=== PATIENT | female | born 1960 | race Hispanic/Latino ===

== ENCOUNTER 2017-12-15 22:47 | Emergency (ER) | payer OTHER, MEDICARE ==
[~2017-12-15 22:47] MED LIST: ALBU90AE IH; AUD IH; CARAL PO; DICY20TA11 PO; FLUT16H NASAL; GABA-531 PO; IPRA3AMP4 IH; LINA290C PO; LORA1TAB3 PO; LOSA25TA21 PO; MECL-111 PO; METF500T6 PO; OFLO5DRO21 AD; OLOP15OS OU; OMEP40CA37 PO; ONDA4TAB4 PO; ROSU5TAB PO
== END 2017-12-16 01:56 | disposition left against medical advice (07) ==
LOC: EDH 22:47
DX: L50.9 Urticaria, unspecified (principal); L29.9 Pruritus, unspecified; J44.9 Chronic obstructive pulmonary disease, unspecified; E11.9 Type 2 diabetes mellitus without complications; E78.5 Hyperlipidemia, unspecified; I10 Essential (primary) hypertension; Z88.0 Allergy status to penicillin; Z88.6 Allergy status to analgesic agent; Z88.8 Allergy status to other drugs, medicaments and biological substances
CPT/HCPCS: 99281

== ENCOUNTER 2019-07-07 04:57 | Emergency (ER) | payer OTHER, MEDICARE ==
[~2019-07-07 04:57] MED LIST changes: +IPRA3AMP24 IH; -IPRA3AMP4 IH; -LOSA25TA21 PO; +LOSA25TA41 PO; +METF-444 PO; -METF500T6 PO; +OMEP40CA13 PO; -OMEP40CA37 PO
[2019-07-07] MEDS ORDERED: ONDANSETRON HCL 4 MG/2 ML VIAL ONE (05:42)
[2019-07-07] MEDS ORDERED: METOCLOPRAMIDE 10 MG/2 ML VIAL ONE (05:42)
[2019-07-07 05:43] LABS: BASOPHILS % (AUTO) 0.2 % (0.0-5.0); EOSINOPHILS % (AUTO) 0.7 % (0.0-8.0); HEMATOCRIT 45.7 % (36-48); LYMPHOCYTES % (AUTO) 5.2 % (21.0-51.0); MEAN CORPUSCULAR HEMOGLOBIN 28.7 pg (27.0-33.0); MEAN CORPUSCULAR HGB CONC 32.8 g/dL (32.0-36.0); MEAN CORPUSCULAR VOLUME 87.5 fL (79-99); MONOCYTES % (AUTO) 3.5 % (3.0-13.0); NEUTROPHILS % (AUTO) 90.4 % (40.0-77.0); PLATELET COUNT (AUTO) 263 K/uL (130-400); RED BLOOD CELL COUNT(AUTO) 5.22 MIL/uL (4.00-5.50); RED CELL DISTRIBUTION WIDTH 14.4 % (11.0-15.5); WHITE BLOOD COUNT (AUTO) 13.9 K/uL (4.8-10.8)
[2019-07-07] MEDS ORDERED: SODIUM CHLORIDE 0.9% 1000ML 1,000 ML IV ONE ×2 (05:43→07:02)
[2019-07-07 05:52] LABS: POTASSIUM 3.7 mmol/L (3.5-5.1)
[2019-07-07 05:55] LABS: INR 0.94 (0.85-1.15); PARTIAL THROMBOPLASTIN TIME 25.9 SEC (26.3-35.5); PROTHROMBIN TIME 9.9 SEC (9.6-11.6)
[2019-07-07 05:59] LABS: ALBUMIN 3.3 g/dL (3.5-5.0); BILIRUBIN,TOTAL 0.5 mg/dL (0.2-1.0)
[2019-07-07] MEDS ORDERED: DiphenhydrAMINE HCL 50 MG/ML VIAL ONE (07:02)
[2019-07-07] MEDS ORDERED: FAMOTIDINE/PF 20 MG/2 ML VIAL IV ONE (07:02)
== END 2019-07-07 07:49 | disposition home or self-care (01) ==
LOC: EDH 04:57
DX: E86.9 Volume depletion, unspecified (principal); K21.9 Gastro-esophageal reflux disease without esophagitis; R51 Headache; F41.9 Anxiety disorder, unspecified; J44.9 Chronic obstructive pulmonary disease, unspecified; F32.9 Major depressive disorder, single episode, unspecified; E11.9 Type 2 diabetes mellitus without complications; E78.5 Hyperlipidemia, unspecified; I10 Essential (primary) hypertension; J45.909 Unspecified asthma, uncomplicated; Z88.0 Allergy status to penicillin; Z88.1 Allergy status to other antibiotic agents; Z88.8 Allergy status to other drugs, medicaments and biological substances
CPT/HCPCS: 36415; 80053; 82550; 83605; 83690; 85025; 85610; 85730; 93005; 96361; 96374; 96375; 99285; J1200; J2405; J2765; J3490; J7030 ×2

== ENCOUNTER 2020-01-26 23:14 | Inpatient (IN) | payer OTHER, MEDICARE ==
[~2020-01-26] VITALS: Ht 167.6 cm; Wt 115.2 kg
[~2020-01-26 23:14] MED LIST changes: -MECL-111 PO; +MECL-160 PO
[2020-01-27] VITALS (15 sets, daily range): BP systolic 86–157; BP diastolic 40–81
[2020-01-27 00:14] LABS: HEMATOCRIT 40.8 % (36-48); LYMPHOCYTES % (AUTO) 20.2 % (21.0-51.0); MEAN CORPUSCULAR HGB CONC 32.4 g/dL (32.0-36.0); MEAN CORPUSCULAR VOLUME 86.6 fL (79-99); MONOCYTES % (AUTO) 5.1 % (3.0-13.0); NEUTROPHILS % (AUTO) 74.5 % (40.0-77.0); PLATELET COUNT (AUTO) 151 K/uL (130-400); RED BLOOD CELL COUNT(AUTO) 4.71 MIL/uL (4.00-5.50); RED CELL DISTRIBUTION WIDTH 13.5 % (11.0-15.5); WHITE BLOOD COUNT (AUTO) 5.1 K/uL (4.8-10.8)
[2020-01-27 00:39] LABS: CREATININE 1.1 mg/dL (0.5-1.5); POTASSIUM 3.5 mmol/L (3.5-5.1)
[2020-01-27 00:42] LABS: APPEARANCE,URINE Clear (CLEAR); BILIRUBIN,URINE Negative (NEGATIVE); COLOR,URINE Yellow (YELLOW); GLUCOSE, URINE (UA) Negative (NEGATIVE); KETONES,URINE Negative (NEGATIVE); LEUKOCYTE ESTERASE ,URINE Negative (NEGATIVE); NITRATE,URINE Negative (NEGATIVE); OCCULT BLOOD,URINE Negative (NEGATIVE); PROTEIN,URINE Negative (NEGATIVE); UROBILINOGEN,URINE 0.2 mg/dL (0.2-1.0)
[2020-01-27 00:43] LABS: ALBUMIN 3.3 g/dL (3.5-5.0); BILIRUBIN,TOTAL 0.2 mg/dL (0.2-1.0); TOTAL PROTEIN, SERUM 7.9 g/dL (6.0-8.3)
[2020-01-27] MEDS ORDERED: LEVOFLOXACIN 750 MG/D5W 150 ML 150 ML ONE (00:44)
[2020-01-27 00:48] LABS: B-TYPE NATRIURETIC PEPTIDE 10 pg/mL (0-100)
[2020-01-27 00:53] LABS: AMPHET/METH SCREEN,URINE NEGATIVE (NEGATIVE); BARBITURATE SCREEN, URINE NEGATIVE (NEGATIVE); BENZODIAZEPINES SCREEN,URINE NEGATIVE (NEGATIVE); CANNABINOID SCREEN,URINE NEGATIVE (NEGATIVE); COCAINE SCREEN,URINE NEGATIVE (NEGATIVE); OPIATE SCREEN,URINE NEGATIVE (NEGATIVE); PHENCYCLIDINE SCREEN,URINE NEGATIVE (NEGATIVE)
[2020-01-27 01:00] LABS: RAPID GROUP A STREP NEGATIVE (NEGATIVE)
[2020-01-27] MEDS ORDERED: ONDANSETRON HCL 4 MG/2 ML VIAL ONE (01:17)
[2020-01-27] MEDS ORDERED: ACETAMINOPHEN EXTRA STRENGTH 500 MG TABLET ONE (01:18)
[2020-01-27] MEDS ORDERED: IPRATROPIUM/ALBUTEROL SULFATE 3 ML SOLUTION IH ONE (03:07)
[2020-01-27] MEDS ORDERED: GLUCAGON 1MG KIT 1 MG ML IM PRN (04:00)
[2020-01-27] MEDS ORDERED: DEXTROSE 50%-WATER 50 ML DISP.SYRIN IV PRN (04:00)
--- NOTE | 2020-01-27 04:00 | NUR ---
Patient arrived to Unit at 0400 into room 219 on room air, but short of breath at times. Patient alert and oriented.
[2020-01-27] MEDS: SODIUM CHLORIDE 0.9% 1000ML 1,000 ML IV SCH ×2 (04:54→17:43)
[2020-01-27] MEDS: AZITHROMYCIN 500MG+NS 250ML 250 ML IV SCH (04:56)
[2020-01-27] MEDS: IPRATROPIUM/ALBUTEROL SULFATE 3 ML SOLUTION IH SCH ×2 (06:00→09:48)
[2020-01-27 06:04] LABS: BASOPHILS % (AUTO) 0.2 % (0.0-5.0); LYMPHOCYTES % (AUTO) 22.6 % (21.0-51.0); MEAN CORPUSCULAR HEMOGLOBIN 28.5 pg (27.0-33.0); MEAN CORPUSCULAR HGB CONC 32.7 g/dL (32.0-36.0); MEAN CORPUSCULAR VOLUME 87.3 fL (79-99); NEUTROPHILS % (AUTO) 71.8 % (40.0-77.0); PLATELET COUNT (AUTO) 144 K/uL (130-400); RED BLOOD CELL COUNT(AUTO) 4.24 MIL/uL (4.00-5.50); RED CELL DISTRIBUTION WIDTH 13.6 % (11.0-15.5); WHITE BLOOD COUNT (AUTO) 4.6 K/uL (4.8-10.8)
[2020-01-27 06:27] LABS: ALBUMIN 2.8 g/dL (3.5-5.0); BILIRUBIN,TOTAL 0.2 mg/dL (0.2-1.0); POTASSIUM 3.7 mmol/L (3.5-5.1); TOTAL PROTEIN, SERUM 6.9 g/dL (6.0-8.3)
[2020-01-27] MEDS: INSULIN R PO SS1 SQ SCH ×4 (07:30→20:27)
[2020-01-27] MEDS ORDERED: OLME40TA18 PO (08:09)
[2020-01-27] MEDS ORDERED: LORA-192 PO (08:09)
[2020-01-27] MEDS ORDERED: TRAM50TA4 PO (08:09)
[2020-01-27] MEDS ORDERED: FURO40TA5 PO (08:09)
[2020-01-27] MEDS ORDERED: ASPI-556 PO (08:09)
[2020-01-27] MEDS ORDERED: AMLO-257 PO (08:09)
[2020-01-27] MEDS ORDERED: [UNRECOGNIZED DRUG - CODE] IV (08:09)
[2020-01-27] MEDS: FAMOTIDINE 20MG TAB 20 MG TAB PO SCH ×2 (09:03→20:19)
[2020-01-27] MEDS: ENOXAPARIN SODIUM 40 MG/0.4 ML SYRINGE SQ SCH (09:04)
--- NOTE | 2020-01-27 10:45 | NUR ---
DC PLAN PATIENT IN COVID ICU SECTION. CALLED SPOUSE FOR IA. PATIENT LIVES WITH SPOUSE. INDEPENDENT ABLE TO PERFORM ADL'S. PATIENT HAS WALKER WITH WHEELS, NEBULIZER AND CANE. NO OTHER SERVICES. FEELS SAFE FOR PATIENT TO RETURN HOME. Addendum: 01/27/20 at 1057 by MAYO PALOMARES RN CM Amended: Links added.
[2020-01-27] MEDS ORDERED: ALBUTEROL SULFATE 0.083% 2.5 MG/3 ML INH IH SCH (13:00)
[2020-01-27] MEDS ORDERED: GUAIFENESIN-CODEINE 5 ML SYRUP PO PRN (13:00)
[2020-01-27] MEDS ORDERED: GUAIFENESIN-CODEINE 5 ML SYRUP ONE ×2 (13:03→17:38)
[2020-01-27] MEDS: ONDANSETRON HCL 4 MG/2 ML VIAL IVP PRN (13:06)
[2020-01-27] MEDS: ALBUTEROL INHALER 90MCG/INH IH SCH (17:42)
[2020-01-27] MEDS: GUAIFENESIN-CODEINE 5 ML SYRUP PO SCH (17:43)
[2020-01-27] MEDS ORDERED: ALBUTEROL INHALER 90MCG/INH IH PRN (18:00)
[2020-01-27] MEDS ORDERED: NON-FORMULARY MEDICATION 1 EACH (Omeprazole 40 MG) PO SCH (20:15)
[2020-01-27] MEDS: CEFEPIME HCL 2 GM VIAL IVP SCH (20:19)
[2020-01-27] MEDS: ACETAMINOPHEN 325 MG TAB PO PRN (20:23)
[2020-01-27] MEDS: PHARMACY COMMUNICATION MISC SCH (20:45)
[2020-01-28] MEDS ORDERED: LEVOFLOXACIN 500 MG/D5W 100 ML 100 ML IV SCH
[2020-01-28] MEDS: ALBUTEROL INHALER 90MCG/INH IH SCH ×3 (00:11→23:23)
[2020-01-28] MEDS: GUAIFENESIN-CODEINE 5 ML SYRUP PO SCH ×5 (00:12→23:22)
[2020-01-28] MEDS: CEFEPIME HCL 2 GM VIAL IVP SCH ×3 (04:06→20:02)
[2020-01-28] MEDS: AZITHROMYCIN 500MG+NS 250ML 250 ML IV SCH (04:06)
[2020-01-28] MEDS: PHARMACY COMMUNICATION MISC SCH ×2 (04:45→19:52)
[2020-01-28 04:48] VITALS: BP 130/69
[2020-01-28] MEDS: SODIUM CHLORIDE 0.9% 1000ML 1,000 ML IV SCH ×2 (05:17→19:52)
[2020-01-28] MEDS: INSULIN R PO SS1 SQ SCH ×4 (05:17→20:02)
[2020-01-28 05:43] LABS: BASOPHILS % (AUTO) 0.2 % (0.0-5.0); LYMPHOCYTES % (AUTO) 21.2 % (21.0-51.0); MEAN CORPUSCULAR HEMOGLOBIN 28.2 pg (27.0-33.0); MEAN CORPUSCULAR HGB CONC 32.2 g/dL (32.0-36.0); MEAN CORPUSCULAR VOLUME 87.6 fL (79-99); MONOCYTES % (AUTO) 3.5 % (3.0-13.0); NEUTROPHILS % (AUTO) 74.7 % (40.0-77.0); PLATELET COUNT (AUTO) 144 K/uL (130-400); RED BLOOD CELL COUNT(AUTO) 4.11 MIL/uL (4.00-5.50); RED CELL DISTRIBUTION WIDTH 13.8 % (11.0-15.5); WHITE BLOOD COUNT (AUTO) 4.9 K/uL (4.8-10.8)
[2020-01-28 06:05] LABS: ALANINE AMINOTRANSFERASE 30 U/L (12-78); ALBUMIN 2.8 g/dL (3.5-5.0); ASPARTATE AMINOTRANSFERASE 44 U/L (10-37); BILIRUBIN,TOTAL 0.3 mg/dL (0.2-1.0); CARBON DIOXIDE 23 mmol/L (21-32); CHLORIDE 104 mmol/L (101-111); CREATININE 0.9 mg/dL (0.5-1.5); GLOMERULAR FILTR. RATE CALC 68 mL/min (>60); GLUCOSE,RANDOM 151 mg/dL (70-105); LACTATE DEHYDROGENASE 280 U/L (81-234); POTASSIUM 3.6 mmol/L (3.5-5.1); SODIUM SERUM 137 mmol/L (136-145); TOTAL PROTEIN, SERUM 6.8 g/dL (6.0-8.3); UREA NITROGEN, BLOOD 7 mg/dL (7-18)
[2020-01-28 07:00] VITALS: BP 117/63
[2020-01-28] MEDS: AMLODIPINE BESYLATE 5 MG TAB PO SCH (08:48)
[2020-01-28] MEDS: FUROSEMIDE 40 MG TABLET PO SCH (08:48)
[2020-01-28] MEDS: FAMOTIDINE 20MG TAB 20 MG TAB PO SCH ×2 (08:48→20:02)
[2020-01-28] MEDS: ENOXAPARIN SODIUM 40 MG/0.4 ML SYRINGE SQ SCH (08:49)
[2020-01-28] MEDS: Olmesartan Medoxomil 40 MG PO SCH (08:51)
[2020-01-28] MEDS ORDERED: LOSARTAN 50 MG TABLET PO SCH (09:00)
--- NOTE | 2020-01-28 09:30 | NUR ---
POSITIVE COVID POSITIVE COVID RESULTS ON 01/28/2020.
[2020-01-28 11:40] VITALS: BP 134/53
[2020-01-28] MEDS: ONDANSETRON HCL 4 MG/2 ML VIAL IVP PRN (11:54)
[2020-01-28] MEDS: ACETAMINOPHEN 325 MG TAB PO PRN ×2 (11:55→21:02)
--- NOTE | 2020-01-28 13:15 | NUR ---
SHAREE HARRIS AND DR. MARY TOLLIVER CUSTOMER ACQUISITION SPECIALIST AND DR. HERNANDEZ AT BEDSIDE TO SEE AND EVALUATE PATIENT. PATIENT MADE AWARE THAT SHE TESTED POSITIVE FOR COVID-19. ALL QUESTIONS AND CONCERNS WERE ANSWERED AND ADDRESSED BY SHAREE HARRIS AT THIS TIME.
[2020-01-28] MEDS: LORAZEPAM 1 MG TABLET PO PRN (14:14)
[2020-01-28 19:57] VITALS: BP 124/54
[2020-01-28 22:51] VITALS: BP 100/53
[2020-01-29 02:42] VITALS: BP 129/64
[2020-01-29] MEDS: CEFEPIME HCL 2 GM VIAL IVP SCH ×3 (03:24→20:31)
[2020-01-29] MEDS: AZITHROMYCIN 500MG+NS 250ML 250 ML IV SCH (03:25)
[2020-01-29] MEDS: ONDANSETRON HCL 4 MG/2 ML VIAL IVP PRN ×2 (03:53→10:48)
[2020-01-29] MEDS: ACETAMINOPHEN 325 MG TAB PO PRN ×2 (03:55→18:56)
[2020-01-29] MEDS: PHARMACY COMMUNICATION MISC SCH ×3 (04:45→20:45)
[2020-01-29] MEDS: GUAIFENESIN-CODEINE 5 ML SYRUP PO SCH ×4 (05:45→22:19)
[2020-01-29 05:49] LABS: HEMATOCRIT 34.9 % (36-48); LYMPHOCYTES % (AUTO) 15.5 % (21.0-51.0); MEAN CORPUSCULAR HEMOGLOBIN 27.5 pg (27.0-33.0); MEAN CORPUSCULAR HGB CONC 31.8 g/dL (32.0-36.0); MEAN CORPUSCULAR VOLUME 86.4 fL (79-99); MONOCYTES % (AUTO) 4.1 % (3.0-13.0); PLATELET COUNT (AUTO) 142 K/uL (130-400); RED BLOOD CELL COUNT(AUTO) 4.04 MIL/uL (4.00-5.50); RED CELL DISTRIBUTION WIDTH 13.7 % (11.0-15.5); WHITE BLOOD COUNT (AUTO) 5.3 K/uL (4.8-10.8)
[2020-01-29] MEDS: INSULIN R PO SS1 SQ SCH ×4 (05:51→20:33)
[2020-01-29 06:04] LABS: CREATININE 0.9 mg/dL (0.5-1.5); POTASSIUM 3.6 mmol/L (3.5-5.1)
[2020-01-29] MEDS: ALBUTEROL INHALER 90MCG/INH IH SCH (06:13)
[2020-01-29] MEDS: FAMOTIDINE 20MG TAB 20 MG TAB PO SCH ×2 (08:04→20:31)
[2020-01-29] MEDS: FUROSEMIDE 40 MG TABLET PO SCH (08:04)
[2020-01-29] MEDS: ENOXAPARIN SODIUM 40 MG/0.4 ML SYRINGE SQ SCH (08:04)
[2020-01-29] MEDS: AMLODIPINE BESYLATE 5 MG TAB PO SCH (08:38)
[2020-01-29] MEDS: Olmesartan Medoxomil 40 MG PO SCH (08:39)
[2020-01-29] MEDS: SODIUM CHLORIDE 0.9% 1000ML 1,000 ML IV SCH ×2 (08:40→20:31)
[2020-01-29 09:09] VITALS: BP 124/63
[2020-01-29] MEDS ORDERED: BENZONATATE 100 MG CAPSULE PO PRN (09:30)
[2020-01-29 12:05] VITALS: BP 141/68
[2020-01-29 16:23] VITALS: BP 140/64
[2020-01-29 20:08] VITALS: BP 147/83
[2020-01-30] VITALS (7 sets, daily range): BP systolic 101–147; BP diastolic 51–72
[2020-01-30] MEDS: ONDANSETRON HCL 4 MG/2 ML VIAL IVP PRN (00:47)
[2020-01-30] MEDS: CEFEPIME HCL 2 GM VIAL IVP SCH (04:40)
[2020-01-30] MEDS: GUAIFENESIN-CODEINE 5 ML SYRUP PO SCH ×3 (04:41→17:23)
[2020-01-30] MEDS: AZITHROMYCIN 500MG+NS 250ML 250 ML IV SCH (04:41)
[2020-01-30] MEDS: INSULIN R PO SS1 SQ SCH ×4 (07:30→21:00)
[2020-01-30] MEDS: ENOXAPARIN SODIUM 40 MG/0.4 ML SYRINGE SQ SCH (09:23)
[2020-01-30] MEDS: FAMOTIDINE 20MG TAB 20 MG TAB PO SCH ×2 (09:24→21:52)
[2020-01-30] MEDS: LOSARTAN 50 MG TABLET PO SCH (09:24)
[2020-01-30] MEDS: AMLODIPINE BESYLATE 5 MG TAB PO SCH (09:24)
[2020-01-30] MEDS: FUROSEMIDE 40 MG TABLET PO SCH (09:24)
[2020-01-30] MEDS: ACETAMINOPHEN 325 MG TAB PO PRN (09:46)
[2020-01-30] MEDS: SODIUM CHLORIDE 0.9% 1000ML 1,000 ML IV SCH ×2 (12:00→21:52)
[2020-01-30] MEDS ORDERED: VANCOMYCIN PROTOCOL PER PHARMACY IV SCH (12:00)
[2020-01-30] MEDS ORDERED: COMPOUND IV REFRIGERATED 1 EACH IVSOLN MISC PRN (12:15)
[2020-01-30] MEDS: MEROPENEM 1 GM VIAL IVP SCH ×2 (14:39→21:52)
[2020-01-30] MEDS: VANCOMYCIN 1.25 GM in SODIUM CHLORIDE 0.9% 250 ML IV SCH (14:41)
[2020-01-30] MEDS ORDERED: METHYLPREDNISOLONE SOD SUCC 40MG/ML 1ML IVP SCH (16:45)
[2020-01-30] MEDS: LORAZEPAM 1 MG TABLET PO PRN (17:25)
[2020-01-30] MEDS: ZOLPIDEM TARTRATE 5 MG TAB PO SCH (21:52)
[2020-01-30] MEDS: ALBUTEROL INHALER 90MCG/INH IH SCH (22:06)
[2020-01-31] VITALS (7 sets, daily range): BP systolic 121–140; BP diastolic 52–67
[2020-01-31] MEDS: GUAIFENESIN-CODEINE 5 ML SYRUP PO SCH ×5 (00:08→23:18)
[2020-01-31] MEDS: VANCOMYCIN 1.25 GM in SODIUM CHLORIDE 0.9% 250 ML IV SCH ×2 (00:09→11:22)
[2020-01-31] MEDS: AZITHROMYCIN 500MG+NS 250ML 250 ML IV SCH (05:28)
[2020-01-31] MEDS: MEROPENEM 1 GM VIAL IVP SCH ×3 (05:28→20:07)
[2020-01-31] MEDS: ALBUTEROL INHALER 90MCG/INH IH SCH ×3 (05:42→18:22)
[2020-01-31] MEDS: INSULIN R PO SS1 SQ SCH ×4 (05:43→20:11)
[2020-01-31] MEDS: LOSARTAN 50 MG TABLET PO SCH (08:15)
[2020-01-31] MEDS: ENOXAPARIN SODIUM 40 MG/0.4 ML SYRINGE SQ SCH (08:16)
[2020-01-31] MEDS: FUROSEMIDE 40 MG TABLET PO SCH (08:16)
[2020-01-31] MEDS: METHYLPREDNISOLONE SOD SUCC 40MG/ML 1ML IVP SCH (08:16)
[2020-01-31] MEDS: FAMOTIDINE 20MG TAB 20 MG TAB PO SCH ×2 (08:16→20:07)
[2020-01-31] MEDS: AMLODIPINE BESYLATE 5 MG TAB PO SCH (08:17)
[2020-01-31] MEDS: LOPERAMIDE HCL 2 MG CAP PO PRN ×3 (11:15→23:18)
[2020-01-31] MEDS: LORAZEPAM 1 MG TABLET PO PRN (11:30)
[2020-01-31] MEDS: SODIUM CHLORIDE 0.9% 1000ML 1,000 ML IV SCH (16:39)
[2020-01-31] MEDS: ZOLPIDEM TARTRATE 5 MG TAB PO SCH (20:07)
[2020-01-31] MEDS: PHARMACY COMMUNICATION MISC SCH (20:45)
[2020-02-01] MEDS: VANCOMYCIN 1.25 GM in SODIUM CHLORIDE 0.9% 250 ML IV SCH ×2 (01:50→12:37)
[2020-02-01] MEDS: ALBUTEROL INHALER 90MCG/INH IH SCH ×5 (01:53→23:50)
[2020-02-01] MEDS: ONDANSETRON HCL 4 MG/2 ML VIAL IVP PRN ×3 (02:33→17:39)
[2020-02-01] MEDS: LORAZEPAM 1 MG TABLET PO PRN ×2 (02:34→20:39)
[2020-02-01 03:00] VITALS: BP 117/69
[2020-02-01] MEDS: PHARMACY COMMUNICATION MISC SCH ×3 (04:45→20:45)
[2020-02-01] MEDS: MEROPENEM 1 GM VIAL IVP SCH ×3 (04:58→20:39)
[2020-02-01] MEDS: AZITHROMYCIN 500MG+NS 250ML 250 ML IV SCH (05:00)
[2020-02-01] MEDS: SODIUM CHLORIDE 0.9% 1000ML 1,000 ML IV SCH ×2 (05:00→17:20)
[2020-02-01] MEDS: GUAIFENESIN-CODEINE 5 ML SYRUP PO SCH ×3 (05:04→17:38)
[2020-02-01 05:59] LABS: BASOPHILS % (AUTO) 0.2 % (0.0-5.0); HEMATOCRIT 35.2 % (36-48); LYMPHOCYTES % (AUTO) 20.4 % (21.0-51.0); MEAN CORPUSCULAR HEMOGLOBIN 28.8 pg (27.0-33.0); MEAN CORPUSCULAR HGB CONC 32.7 g/dL (32.0-36.0); MEAN CORPUSCULAR VOLUME 88.2 fL (79-99); NEUTROPHILS % (AUTO) 70.7 % (40.0-77.0); PLATELET COUNT (AUTO) 265 K/uL (130-400); RED BLOOD CELL COUNT(AUTO) 3.99 MIL/uL (4.00-5.50); RED CELL DISTRIBUTION WIDTH 13.6 % (11.0-15.5); WHITE BLOOD COUNT (AUTO) 5.8 K/uL (4.8-10.8)
[2020-02-01] MEDS: INSULIN R PO SS1 SQ SCH ×4 (06:09→23:49)
[2020-02-01 06:13] LABS: CREATININE 0.9 mg/dL (0.5-1.5); POTASSIUM 3.4 mmol/L (3.5-5.1)
[2020-02-01 08:00] VITALS: BP 141/67
[2020-02-01] MEDS: LOSARTAN 50 MG TABLET PO SCH (08:41)
[2020-02-01] MEDS: METHYLPREDNISOLONE SOD SUCC 40MG/ML 1ML IVP SCH (08:41)
[2020-02-01] MEDS: FUROSEMIDE 40 MG TABLET PO SCH ×2 (08:42→12:37)
[2020-02-01] MEDS: FAMOTIDINE 20MG TAB 20 MG TAB PO SCH ×2 (08:42→20:39)
[2020-02-01] MEDS: ENOXAPARIN SODIUM 40 MG/0.4 ML SYRINGE SQ SCH (08:42)
[2020-02-01] MEDS: LOPERAMIDE HCL 2 MG CAP PO PRN ×2 (08:44→17:39)
[2020-02-01] MEDS: AMLODIPINE BESYLATE 5 MG TAB PO SCH (08:48)
[2020-02-01 12:00] VITALS: BP 127/51
[2020-02-01] MEDS: POTASSIUM CHLORIDE 20 MEQ ERTAB PO PRN ×2 (12:36→17:38)
[2020-02-01 16:00] VITALS: BP 124/65
[2020-02-01 19:00] VITALS: BP 126/59
[2020-02-01] MEDS: ZOLPIDEM TARTRATE 5 MG TAB PO SCH (20:39)
[2020-02-01 23:00] VITALS: BP 138/67
[2020-02-02] MEDS: PHARMACY COMMUNICATION MISC SCH ×3 (00:10→04:45)
[2020-02-02] MEDS: GUAIFENESIN-CODEINE 5 ML SYRUP PO SCH ×5 (00:31→21:44)
[2020-02-02 03:00] VITALS: BP 133/57
[2020-02-02] MEDS: MEROPENEM 1 GM VIAL IVP SCH ×3 (04:59→21:44)
[2020-02-02] MEDS: AZITHROMYCIN 500MG+NS 250ML 250 ML IV SCH (05:00)
[2020-02-02] MEDS: ALBUTEROL INHALER 90MCG/INH IH SCH (06:27)
[2020-02-02] MEDS: SODIUM CHLORIDE 0.9% 1000ML 1,000 ML IV SCH ×2 (06:40→21:48)
[2020-02-02 07:17] LABS: BASOPHILS % (AUTO) 0.2 % (0.0-5.0); HEMATOCRIT 34.1 % (36-48); LYMPHOCYTES % (AUTO) 23.9 % (21.0-51.0); MEAN CORPUSCULAR HEMOGLOBIN 27.6 pg (27.0-33.0); MEAN CORPUSCULAR VOLUME 86.3 fL (79-99); NEUTROPHILS % (AUTO) 64.7 % (40.0-77.0); PLATELET COUNT (AUTO) 279 K/uL (130-400); RED BLOOD CELL COUNT(AUTO) 3.95 MIL/uL (4.00-5.50); RED CELL DISTRIBUTION WIDTH 13.6 % (11.0-15.5); WHITE BLOOD COUNT (AUTO) 6.5 K/uL (4.8-10.8)
[2020-02-02 07:25] LABS: ALBUMIN 2.3 g/dL (3.5-5.0); BILIRUBIN,TOTAL 0.2 mg/dL (0.2-1.0); CREATININE 0.8 mg/dL (0.5-1.5); POTASSIUM 3.3 mmol/L (3.5-5.1); TOTAL PROTEIN, SERUM 6.4 g/dL (6.0-8.3)
[2020-02-02] MEDS: INSULIN R PO SS1 SQ SCH ×4 (07:30→21:43)
[2020-02-02 07:44] LABS: CRP QUANTITATIVE 27.8 mg/L (0.00-9.0)
[2020-02-02 08:00] VITALS: BP 117/62
[2020-02-02] MEDS: ENOXAPARIN SODIUM 40 MG/0.4 ML SYRINGE SQ SCH (09:29)
[2020-02-02] MEDS: FUROSEMIDE 40 MG TABLET PO SCH (09:30)
[2020-02-02] MEDS: POTASSIUM CHLORIDE 10% ELIXIR 20 MEQ/15 ML UDCUP PO PRN (09:30)
[2020-02-02] MEDS: FAMOTIDINE 20MG TAB 20 MG TAB PO SCH ×2 (09:30→21:44)
[2020-02-02] MEDS: METHYLPREDNISOLONE SOD SUCC 40MG/ML 1ML IVP SCH (09:30)
[2020-02-02] MEDS: AMLODIPINE BESYLATE 5 MG TAB PO SCH (09:30)
[2020-02-02] MEDS: LOPERAMIDE HCL 2 MG CAP PO PRN (09:30)
[2020-02-02] MEDS: LOSARTAN 50 MG TABLET PO SCH (09:30)
[2020-02-02 12:00] VITALS: BP 115/47
[2020-02-02] MEDS: POTASSIUM CHLORIDE 20 MEQ ERTAB PO PRN ×2 (12:08→15:58)
[2020-02-02] MEDS: VANCOMYCIN 1.25 GM in SODIUM CHLORIDE 0.9% 250 ML IV SCH ×3 (12:10)
[2020-02-02 15:00] VITALS: BP 137/52
[2020-02-02 19:35] VITALS: BP 126/57
[2020-02-02] MEDS: ZOLPIDEM TARTRATE 5 MG TAB PO SCH (21:44)
[2020-02-02 23:35] VITALS: BP 129/62
[2020-02-03] MEDS: VANCOMYCIN 1.25 GM in SODIUM CHLORIDE 0.9% 250 ML IV SCH ×2 (00:19→11:43)
[2020-02-03] MEDS: MEROPENEM 1 GM VIAL IVP SCH ×3 (03:15→21:10)
[2020-02-03 03:32] VITALS: BP 125/68
[2020-02-03] MEDS: PHARMACY COMMUNICATION MISC SCH (04:45)
[2020-02-03] MEDS: GUAIFENESIN-CODEINE 5 ML SYRUP PO SCH ×4 (05:45→23:50)
[2020-02-03] MEDS: INSULIN R PO SS1 SQ SCH ×4 (06:11→21:00)
[2020-02-03 07:00] VITALS: BP 127/71
[2020-02-03] MEDS: LOSARTAN 50 MG TABLET PO SCH (07:55)
[2020-02-03] MEDS: FAMOTIDINE 20MG TAB 20 MG TAB PO SCH ×2 (07:55→21:11)
[2020-02-03] MEDS: AMLODIPINE BESYLATE 5 MG TAB PO SCH (07:55)
[2020-02-03] MEDS: FUROSEMIDE 40 MG TABLET PO SCH (07:55)
[2020-02-03] MEDS: ENOXAPARIN SODIUM 40 MG/0.4 ML SYRINGE SQ SCH (07:56)
[2020-02-03] MEDS: SODIUM CHLORIDE 0.9% 1000ML 1,000 ML IV SCH ×2 (07:56→21:13)
[2020-02-03] MEDS ORDERED: PREDNISONE 20 MG TABLET PO SCH (09:00)
[2020-02-03 11:00] VITALS: BP 117/65
[2020-02-03] MEDS: LOPERAMIDE HCL 2 MG CAP PO PRN (11:43)
[2020-02-03 16:00] VITALS: BP 117/67
[2020-02-03 19:26] VITALS: BP 135/69
--- NOTE | 2020-02-03 20:45 | NUR ---
ASSESSMENT PT RESTING IN BED. IVF NS AT 75ML/H INFUSING WITHOUT DIFFICULTY. PT AAOX4. PT COVID-19 (+). ASSESSMENT COMPLETE, SEE FLOW SHEET. CALLBELL WITHIN REACH.
[2020-02-03] MEDS: ZOLPIDEM TARTRATE 5 MG TAB PO SCH (21:11)
[2020-02-03 23:42] VITALS: BP 141/68
[2020-02-03] MEDS: LORAZEPAM 1 MG TABLET PO PRN (23:53)
[2020-02-03] MEDS: ACETAMINOPHEN 325 MG TAB PO PRN (23:55)
[2020-02-04] MEDS: MEROPENEM 1 GM VIAL IVP SCH ×2 (03:41→11:52)
[2020-02-04 03:48] VITALS: BP 142/72
[2020-02-04] MEDS: INSULIN R PO SS1 SQ SCH ×4 (05:24→20:17)
[2020-02-04] MEDS: GUAIFENESIN-CODEINE 5 ML SYRUP PO SCH ×3 (05:24→17:19)
[2020-02-04 05:38] LABS: BASOPHILS % (AUTO) 0.1 % (0.0-5.0); EOSINOPHILS % (AUTO) 0.3 % (0.0-8.0); HEMATOCRIT 35.2 % (36-48); LYMPHOCYTES % (AUTO) 29.2 % (21.0-51.0); MEAN CORPUSCULAR HEMOGLOBIN 28.1 pg (27.0-33.0); MEAN CORPUSCULAR HGB CONC 32.4 g/dL (32.0-36.0); MEAN CORPUSCULAR VOLUME 86.7 fL (79-99); MONOCYTES % (AUTO) 9.7 % (3.0-13.0); NEUTROPHILS % (AUTO) 58.8 % (40.0-77.0); PLATELET COUNT (AUTO) 342 K/uL (130-400); RED BLOOD CELL COUNT(AUTO) 4.06 MIL/uL (4.00-5.50); RED CELL DISTRIBUTION WIDTH 13.2 % (11.0-15.5); WHITE BLOOD COUNT (AUTO) 6.8 K/uL (4.8-10.8)
[2020-02-04 05:47] LABS: CREATININE 0.7 mg/dL (0.5-1.5); POTASSIUM 3.2 mmol/L (3.5-5.1)
[2020-02-04] MEDS: ALBUTEROL INHALER 90MCG/INH IH SCH ×2 (05:47)
[2020-02-04] MEDS: POTASSIUM CHLORIDE 10% ELIXIR 20 MEQ/15 ML UDCUP PO PRN ×2 (05:55→05:56)
[2020-02-04] MEDS: POTASSIUM CHLORIDE 20 MEQ ERTAB PO PRN ×2 (06:03→07:25)
[2020-02-04 07:00] VITALS: BP 135/68
[2020-02-04] MEDS: ENOXAPARIN SODIUM 40 MG/0.4 ML SYRINGE SQ SCH (07:22)
[2020-02-04] MEDS: AMLODIPINE BESYLATE 5 MG TAB PO SCH (07:23)
[2020-02-04] MEDS: LOSARTAN 50 MG TABLET PO SCH (07:23)
[2020-02-04] MEDS: FUROSEMIDE 40 MG TABLET PO SCH (07:23)
[2020-02-04] MEDS: FAMOTIDINE 20MG TAB 20 MG TAB PO SCH ×2 (07:23→20:17)
--- NOTE | 2020-02-04 08:00 | NUR ---
ASSESSMENT PT RESTING IN BED. AAOX3 DENIES CP DENIES SOB DENIES NV NO COMPLAINTS. O2 VIA NC 2LPM. CALL LIGHT WITHIN REACH. HR VIA TELE 70 SR.
[2020-02-04 11:00] VITALS: BP 106/52
--- NOTE | 2020-02-04 12:00 | NUR ---
PLACED ON CDIFF PRECAUTIONS STILL REMAINS ON ENHANCED AIRBORNE PRECAUTIONS
[2020-02-04 16:00] VITALS: BP 118/68
--- NOTE | 2020-02-04 17:20 | NUR ---
PATIENT HAS NO COMPLAINTS OF COUGH AT THIS TIME COUGH SYRUP NOT GIVEN
[2020-02-04] MEDS ORDERED: GUAIFENESIN-CODEINE 5 ML SYRUP PO PRN (17:45)
--- NOTE | 2020-02-04 18:26 | NUR ---
DC PLAN PATIENT QUALIFIED FOR HOME . SPOKE TO PATIENT FOR DANIEL SAID THAT DAUGHTER HAD SPOKEN TO [facility] AND SAID SHE COULD GET O2 FROM THEM. EXPLAINED THAT THS MIGHT NOT BE ACCEPTED AT [facility]. ASKED IF I COULD SEND PACKET TO [employer] COMPANY THAT WOULD ACCEPT PATIENT INSURANCE. GAVE DANIEL FOR 02 TO ANY IN NETWORK. INFO SENT TO [facility] AND TO [facility] MONITORING. Addendum: 02/04/20 at 1832 by MAYO PALOMARES RN CM Amended: Links added.
[2020-02-04] MEDS: ZOLPIDEM TARTRATE 5 MG TAB PO SCH (20:17)
[2020-02-04] MEDS: ACETAMINOPHEN 325 MG TAB PO PRN (20:34)
[2020-02-04] MEDS: LORAZEPAM 1 MG TABLET PO PRN (20:34)
[2020-02-04 20:49] VITALS: BP 104/63
[2020-02-05 00:03] VITALS: BP 114/56
[2020-02-05 04:12] VITALS: BP 128/52
[2020-02-05] MEDS: ALBUTEROL INHALER 90MCG/INH IH SCH ×2 (05:28)
[2020-02-05] MEDS: INSULIN R PO SS1 SQ SCH ×2 (06:23→11:30)
[2020-02-05 08:55] VITALS: BP 129/54
[2020-02-05] MEDS: LOSARTAN 50 MG TABLET PO SCH (09:04)
[2020-02-05] MEDS: AMLODIPINE BESYLATE 5 MG TAB PO SCH (09:04)
[2020-02-05] MEDS: FAMOTIDINE 20MG TAB 20 MG TAB PO SCH (09:04)
[2020-02-05] MEDS: FUROSEMIDE 40 MG TABLET PO SCH (09:05)
[2020-02-05] MEDS: ENOXAPARIN SODIUM 40 MG/0.4 ML SYRINGE SQ SCH (09:06)
[2020-02-05 11:30] VITALS: BP 87/57
[2020-02-05 11:40] VITALS: BP 118/64
--- NOTE | 2020-02-05 12:15 | NUR ---
ADVISED BY PATIENT THAT OXYGEN HAS BEEN DELIVERED TO HOME LET JENNIFER CAVANAUGH AND JOSUE GONZALES NOW. Addendum: 02/05/20 at 1216 by JOHN PAVON RN CM Amended: Links added.
--- NOTE | 2020-02-05 13:25 | NUR ---
PT D/C HOME USING TEACH BACK TECHIQUE RE; S/S TO WATCH FOR AND WHEN TO CALL MD OR 911. HOME MEDS AND NEW MEDS. FOLLOW UP WITH YOUR PRIMARY DOCTOR AFTER ISOLATION HAS BEEN MET. FOLLOW UP WITH DR. RANDI HERNANDEZ IN 10 DAYS. CALL TO SET UP AN APPOINTMENT. AT [phone] MAY FOLLOW UP SOONER IF NEEDED OR IF SIGN AND SYMPTOMS WORSEN. CALL 911 OR COME TO YOUR NEAREST EMERGENCY ROOM IF YOUR SYMPTOMS WORSEN. MAKE SURE TO WASH YOUR HANDS AND SELF ISOLATE YOURSELF FOR 15 DAYS. Addendum: 02/05/20 at 1904 by AFSHAN JENNINGS RN RN OXYGEN TANK AT BEDSIDE PATIENT AWARE ON HOW TO USE IT AND TO AVOID SMOKING OR WHERE THERE IS FIRE MAY CAUSE AN EXPLOSION.
== END 2020-02-05 13:30 | disposition home or self-care (01) | DRG 177 ==
LOC: EDH 23:14 → EDHIP 01-27 02:25 → 2CH 01-27 04:23 → 2DH 01-27 19:15
PROVIDERS: ADMIT Internal Medicine Pulmonary Disease; ATTEND Internal Medicine Pulmonary Disease
DX: U07.1 COVID-19 (principal); J96.01 Acute respiratory failure with hypoxia; J12.89 Other viral pneumonia; J44.0 Chronic obstructive pulmonary disease with (acute) lower respiratory infection; Z68.41 Body mass index [BMI] 40.0-44.9, adult; E11.9 Type 2 diabetes mellitus without complications; E66.01 Morbid (severe) obesity due to excess calories; F32.9 Major depressive disorder, single episode, unspecified; G40.909 Epilepsy, unspecified, not intractable, without status epilepticus; G47.00 Insomnia, unspecified; F41.9 Anxiety disorder, unspecified; I10 Essential (primary) hypertension; I25.10 Atherosclerotic heart disease of native coronary artery without angina pectoris; M19.90 Unspecified osteoarthritis, unspecified site; Z74.01 Bed confinement status; Z79.82 Long term (current) use of aspirin; Z88.0 Allergy status to penicillin; Z88.5 Allergy status to narcotic agent; Z88.8 Allergy status to other drugs, medicaments and biological substances; Z79.84 Long term (current) use of oral hypoglycemic drugs; Z79.899 Other long term (current) drug therapy; Z71.89 Other specified counseling
CPT/HCPCS: 36415; 71045; 71250; 80048; 80053; 80202; 80305; 81003; 82728; 82948; 83605; 83615; 83880; 84132; 84145; 84484; 85025; 85378; 86140; 87040; 87324; 87633; 87635; 87804; 87880; 93005; 94640; 94664; 94760; G0378; J0456; J0692; J1650; J1815; J1956; J2185; J2405; J2920; J3370; J7030; J7050

== ENCOUNTER → 2020-03-23 | Outpatient (CLI) | payer OTHER, MEDICARE ==
[~2020-03-23] MED LIST changes: +AMLO5TAB9 PO; +ASPI-556 PO; -AUD IH; -CARAL PO; -DICY20TA11 PO; +FURO40TA5 PO; -GABA-531 PO; -IPRA3AMP24 IH; -LINA290C PO; +LORA-192 PO; -LORA1TAB3 PO; -LOSA25TA41 PO; -OFLO5DRO21 AD; +OLME40TA18 PO; -OLOP15OS OU; -ONDA4TAB4 PO
== END | disposition home or self-care (01) ==
LOC: RAH 10:16
PROVIDERS: ATTEND Internal Medicine Cardiovascular Disease
DX: I10 Essential (primary) hypertension (principal)
CPT/HCPCS: 76770; 93975

== ENCOUNTER → 2021-05-04 | Outpatient (CLI) | payer OTHER, MEDICARE ==
[~2021-05-04] MED LIST changes: +AMLO-257 PO; -AMLO5TAB9 PO; -OMEP40CA13 PO; +OMEP40CA21 PO
== END | disposition home or self-care (01) ==
LOC: RAH 10:58
PROVIDERS: ATTEND Family Medicine
DX: R22.1 Localized swelling, mass and lump, neck (principal); R13.10 Dysphagia, unspecified
CPT/HCPCS: 76536

== ENCOUNTER → 2021-07-08 | Outpatient (CLI) | payer OTHER, MEDICARE | END | disposition home or self-care (01) | LOC: RAH 14:19 | PROVIDERS: ATTEND Family Medicine | DX: I12.9 Hypertensive chronic kidney disease with stage 1 through stage 4 chronic kidney disease, or unspecified chronic kidney disease (principal); I70.0 Atherosclerosis of aorta; N32.89 Other specified disorders of bladder | CPT/HCPCS: 76770 ==

== ENCOUNTER 2021-10-11 19:56 | Emergency (ER) | payer OTHER, MEDICARE ==
[~2021-10-11] VITALS: Ht 165.1 cm; Wt 113.4 kg
[2021-10-11 20:26] LABS: BASOPHILS % (AUTO) 0.3 % (0.0-5.0); EOSINOPHILS % (AUTO) 2.2 % (0.0-8.0); HEMATOCRIT 42.1 % (36-48); LYMPHOCYTES % (AUTO) 29.1 % (21.0-51.0); MEAN CORPUSCULAR HEMOGLOBIN 28.4 pg (27.0-33.0); MEAN CORPUSCULAR HGB CONC 31.6 g/dL (32.0-36.0); MEAN CORPUSCULAR VOLUME 89.8 fL (79-99); MONOCYTES % (AUTO) 5.9 % (3.0-13.0); NEUTROPHILS % (AUTO) 62.2 % (40.0-77.0); PLATELET COUNT (AUTO) 280 K/uL (130-400); RED BLOOD CELL COUNT(AUTO) 4.69 MIL/uL (4.00-5.50); RED CELL DISTRIBUTION WIDTH 13.4 % (11.0-15.5); WHITE BLOOD COUNT (AUTO) 8.7 K/uL (4.8-10.8)
[2021-10-11 20:27] LABS: APPEARANCE,URINE Clear (CLEAR); BILIRUBIN,URINE Negative (NEGATIVE); COLOR,URINE Yellow (YELLOW); GLUCOSE, URINE (UA) Negative (NEGATIVE); KETONES,URINE Negative (NEGATIVE); LEUKOCYTE ESTERASE ,URINE Moderate (NEGATIVE); NITRATE,URINE Negative (NEGATIVE); OCCULT BLOOD,URINE Negative (NEGATIVE); PROTEIN,URINE Negative (NEGATIVE); UROBILINOGEN,URINE 0.2 mg/dL (0.2-1.0)
[2021-10-11 20:38] LABS: BACTERIA,URINE Rare /HPF (None Seen); RBC,URINE None Seen /HPF (0-1)
[2021-10-11 20:39] LABS: SQUAMOUS EPITHELIAL CELL,UR 0-2 /HPF (0-2)
[2021-10-11 20:41] LABS: CREATININE 0.8 mg/dL (0.5-1.5)
[2021-10-11 20:45] LABS: ALBUMIN 3.5 g/dL (3.5-5.0); BILIRUBIN,TOTAL 0.2 mg/dL (0.2-1.0); TOTAL PROTEIN, SERUM 7.6 g/dL (6.0-8.3)
[2021-10-11] MEDS ORDERED: BUPIVACAINE/PF 0.5% 30ML VIAL ONE (21:10)
[2021-10-11] MEDS ORDERED: BUPIVACAINE/PF 0.5% 10ML VIAL IJ ONE (21:30)
[2021-10-11] MEDS ORDERED: TRIAMCINOLONE ACETONIDE 40 MG/ML 1ML VIAL SQ ONE (21:30)
[2021-10-11 21:54] VITALS: BP 124/71
== END 2021-10-11 21:55 | disposition home or self-care (01) ==
LOC: EDH 19:56
DX: M70.61 Trochanteric bursitis, right hip (principal); E11.9 Type 2 diabetes mellitus without complications; I10 Essential (primary) hypertension; J44.9 Chronic obstructive pulmonary disease, unspecified; Z88.0 Allergy status to penicillin; Z88.1 Allergy status to other antibiotic agents; Z88.5 Allergy status to narcotic agent; Z90.49 Acquired absence of other specified parts of digestive tract; Z79.82 Long term (current) use of aspirin; Z79.84 Long term (current) use of oral hypoglycemic drugs; Z79.899 Other long term (current) drug therapy; Z86.16 Personal history of COVID-19
CPT/HCPCS: 20610; 36415; 80053; 81001; 85025; 87088; 99283; J3301; J3490 ×2

== ENCOUNTER 2021-10-31 10:03 | Emergency (ER) | payer OTHER, MEDICARE ==
[~2021-10-31] VITALS: Ht 167.6 cm; Wt 108.9 kg
[2021-10-31 10:05] VITALS: BP 150/63
[2021-10-31 10:34] LABS: BASOPHILS % (AUTO) 0.1 % (0.0-5.0); EOSINOPHILS % (AUTO) 0.2 % (0.0-8.0); HEMATOCRIT 43.3 % (36-48); LYMPHOCYTES % (AUTO) 15.8 % (21.0-51.0); MEAN CORPUSCULAR HEMOGLOBIN 28.1 pg (27.0-33.0); MEAN CORPUSCULAR HGB CONC 31.6 g/dL (32.0-36.0); MEAN CORPUSCULAR VOLUME 88.9 fL (79-99); MONOCYTES % (AUTO) 5.7 % (3.0-13.0); NEUTROPHILS % (AUTO) 77.7 % (40.0-77.0); PLATELET COUNT (AUTO) 273 K/uL (130-400); RED BLOOD CELL COUNT(AUTO) 4.87 MIL/uL (4.00-5.50); RED CELL DISTRIBUTION WIDTH 13.2 % (11.0-15.5); WHITE BLOOD COUNT (AUTO) 10.4 K/uL (4.8-10.8)
[2021-10-31 10:37] LABS: APPEARANCE,URINE Clear (CLEAR); BILIRUBIN,URINE Negative (NEGATIVE); COLOR,URINE Yellow (YELLOW); GLUCOSE, URINE (UA) Negative (NEGATIVE); KETONES,URINE Negative (NEGATIVE); LEUKOCYTE ESTERASE ,URINE Small (NEGATIVE); NITRATE,URINE Negative (NEGATIVE); OCCULT BLOOD,URINE Negative (NEGATIVE); PH,URINE 7.5 (5.0-8.0); PROTEIN,URINE Negative (NEGATIVE); UROBILINOGEN,URINE 0.2 mg/dL (0.2-1.0)
[2021-10-31 10:49] LABS: ALBUMIN 3.4 g/dL (3.5-5.0); BILIRUBIN,TOTAL 0.3 mg/dL (0.2-1.0); CREATININE 0.8 mg/dL (0.5-1.5); POTASSIUM 3.7 mmol/L (3.5-5.1); TOTAL PROTEIN, SERUM 8.3 g/dL (6.0-8.3)
[2021-10-31 11:23] LABS: BACTERIA,URINE Rare /HPF (None Seen); RBC,URINE 0-1 /HPF (0-1); SQUAMOUS EPITHELIAL CELL,UR Rare /HPF (0-2); WBC,URINE 0-1 /HPF (0-1)
[2021-10-31] MEDS ORDERED: KETOROLAC 15MG/ML VIAL (15MG/ML) IV SCH (11:53)
== END 2021-10-31 13:05 | disposition home or self-care (01) ==
LOC: EDH 10:03
DX: R10.12 Left upper quadrant pain (principal); E11.9 Type 2 diabetes mellitus without complications; F41.9 Anxiety disorder, unspecified; I10 Essential (primary) hypertension; J44.9 Chronic obstructive pulmonary disease, unspecified; Z88.0 Allergy status to penicillin; Z88.1 Allergy status to other antibiotic agents; Z88.5 Allergy status to narcotic agent; Z79.82 Long term (current) use of aspirin; Z79.84 Long term (current) use of oral hypoglycemic drugs; Z79.899 Other long term (current) drug therapy; Z86.16 Personal history of COVID-19; Z90.49 Acquired absence of other specified parts of digestive tract; Z79.1 Long term (current) use of non-steroidal anti-inflammatories (NSAID)
CPT/HCPCS: 36415; 71045; 74176; 80053; 81001; 83690; 84484; 85025; 93005; 96374; 99285; J1885

== ENCOUNTER → 2021-12-09 | Outpatient (CLI) | payer OTHER, MEDICARE | END | disposition home or self-care (01) | LOC: RAH 12:35 | PROVIDERS: ATTEND Family Medicine | DX: K76.0 Fatty (change of) liver, not elsewhere classified (principal); K76.89 Other specified diseases of liver; Z90.49 Acquired absence of other specified parts of digestive tract | CPT/HCPCS: 76700 ==

== ENCOUNTER 2022-04-14 13:09 | Emergency (ER) | payer OTHER, MEDICARE ==
[~2022-04-14] VITALS: Ht 162.6 cm; Wt 111.1 kg
[2022-04-14 13:11] VITALS: BP 141/64
[2022-04-14] MEDS ORDERED: CYCLOBENZAPRINE HCL 10 MG TABLET PO ONE (13:30)
[2022-04-14 13:43] LABS: BASOPHILS % (AUTO) 0.3 % (0.0-5.0); EOSINOPHILS % (AUTO) 1.1 % (0.0-8.0); HEMATOCRIT 42.5 % (36-48); LYMPHOCYTES % (AUTO) 13.4 % (21.0-51.0); MEAN CORPUSCULAR HEMOGLOBIN 28.5 pg (27.0-33.0); MEAN CORPUSCULAR HGB CONC 31.8 g/dL (32.0-36.0); MEAN CORPUSCULAR VOLUME 89.7 fL (79-99); MONOCYTES % (AUTO) 4.7 % (3.0-13.0); PLATELET COUNT (AUTO) 294 K/uL (130-400); RED BLOOD CELL COUNT(AUTO) 4.74 MIL/uL (4.00-5.50); RED CELL DISTRIBUTION WIDTH 13.4 % (11.0-15.5); WHITE BLOOD COUNT (AUTO) 13.3 K/uL (4.8-10.8)
[2022-04-14 13:53] LABS: CREATININE 0.9 mg/dL (0.5-1.5); POTASSIUM 4.8 mmol/L (3.5-5.1)
[2022-04-14 13:58] LABS: ALBUMIN 3.2 g/dL (3.5-5.0); TOTAL PROTEIN, SERUM 7.9 g/dL (6.0-8.3)
[2022-04-14] MEDS ORDERED: BUPIVACAINE/PF 0.5% 10ML VIAL IJ ONE (14:30)
[2022-04-14] MEDS ORDERED: TRIAMCINOLONE ACETONIDE 40 MG/ML 1ML VIAL SQ ONE (14:30)
[2022-04-14] MEDS ORDERED: CYCL10TA16 PO (14:41)
[2022-04-14] MEDS ORDERED: NAPR-1180 PO (14:41)
[2022-04-14 15:05] LABS: APPEARANCE,URINE Clear (CLEAR); BILIRUBIN,URINE Negative (NEGATIVE); COLOR,URINE Yellow (YELLOW); GLUCOSE, URINE (UA) Negative (NEGATIVE); KETONES,URINE Negative (NEGATIVE); LEUKOCYTE ESTERASE ,URINE Negative (NEGATIVE); NITRATE,URINE Negative (NEGATIVE); OCCULT BLOOD,URINE Negative (NEGATIVE); PROTEIN,URINE Negative (NEGATIVE); UROBILINOGEN,URINE 0.2 mg/dL (0.2-1.0)
[2022-04-14] MEDS ORDERED: BUPIVACAINE/PF 0.5% 30ML VIAL INJ ONE (15:30)
== END 2022-04-14 15:30 | disposition home or self-care (01) ==
LOC: EDH 13:09
DX: S93.401A Sprain of unspecified ligament of right ankle, initial encounter (principal); S16.1XXA Strain of muscle, fascia and tendon at neck level, initial encounter; S20.211A Contusion of right front wall of thorax, initial encounter; M70.61 Trochanteric bursitis, right hip; S00.83XA Contusion of other part of head, initial encounter; M17.11 Unilateral primary osteoarthritis, right knee; E66.01 Morbid (severe) obesity due to excess calories; E11.9 Type 2 diabetes mellitus without complications; F41.9 Anxiety disorder, unspecified; I10 Essential (primary) hypertension; I25.10 Atherosclerotic heart disease of native coronary artery without angina pectoris; J44.9 Chronic obstructive pulmonary disease, unspecified; K21.9 Gastro-esophageal reflux disease without esophagitis; Z88.0 Allergy status to penicillin; Z88.1 Allergy status to other antibiotic agents; Z88.5 Allergy status to narcotic agent; Z90.49 Acquired absence of other specified parts of digestive tract; Z79.1 Long term (current) use of non-steroidal anti-inflammatories (NSAID); Z79.82 Long term (current) use of aspirin; Z79.899 Other long term (current) drug therapy; Z86.16 Personal history of COVID-19; Z68.41 Body mass index [BMI] 40.0-44.9, adult; W01.0XXA Fall on same level from slipping, tripping and stumbling without subsequent striking against object, initial encounter; Y93.89 Activity, other specified; Y92.89 Other specified places as the place of occurrence of the external cause; Y99.8 Other external cause status
CPT/HCPCS: 99285; 20610; 70450; 84484; 80053; 85025; 81003; 36415; 73610; 73562; 72125; 71250; J3301; J3490

== ENCOUNTER 2022-12-13 22:51 | Emergency (ER) | payer OTHER, MEDICARE ==
[~2022-12-13] VITALS: Ht 167.6 cm; Wt 113.4 kg
[~2022-12-13 22:51] MED LIST changes: +CYCL10TA16 PO; +NAPR-1180 PO
[2022-12-13 22:54] VITALS: BP 163/72
[2022-12-13 23:44] LABS: BASOPHILS % (AUTO) 0.5 % (0.0-5.0); EOSINOPHILS % (AUTO) 3.7 % (0.0-8.0); LYMPHOCYTES % (AUTO) 24.3 % (21.0-51.0); MEAN CORPUSCULAR HEMOGLOBIN 28.2 pg (27.0-33.0); MEAN CORPUSCULAR HGB CONC 32.1 g/dL (32.0-36.0); MONOCYTES % (AUTO) 5.5 % (3.0-13.0); NEUTROPHILS % (AUTO) 65.7 % (40.0-77.0); PLATELET COUNT (AUTO) 281 K/uL (130-400); RED BLOOD CELL COUNT(AUTO) 4.43 MIL/uL (4.00-5.50); RED CELL DISTRIBUTION WIDTH 13.6 % (11.0-15.5); WHITE BLOOD COUNT (AUTO) 9.9 K/uL (4.8-10.8)
[2022-12-13 23:58] LABS: CREATININE 0.9 mg/dL (0.5-1.5); POTASSIUM 3.7 mmol/L (3.5-5.1)
[2022-12-14 00:03] LABS: ALBUMIN 3.4 g/dL (3.5-5.0); TOTAL PROTEIN, SERUM 7.1 g/dL (6.0-8.3)
[2022-12-14 00:28] LABS: APPEARANCE,URINE CLEAR (CLEAR); BILIRUBIN,URINE NEGATIVE (NEGATIVE); GLUCOSE, URINE (UA) NEGATIVE (NEGATIVE); KETONES,URINE NEGATIVE (NEGATIVE); LEUKOCYTE ESTERASE ,URINE NEGATIVE Leu/uL (NEGATIVE); NITRATE,URINE NEGATIVE (NEGATIVE); OCCULT BLOOD,URINE NEGATIVE (NEGATIVE); PH,URINE 7.5 (5.0-8.0); PROTEIN,URINE NEGATIVE (NEGATIVE); UROBILINOGEN,URINE 0.2 mg/dL (0.2-1.0)
[2022-12-14 00:29] LABS: COLOR,URINE Light-Yellow (YELLOW)
[2022-12-14] MEDS ORDERED: METR375C2 PO (01:22)
[2022-12-14] MEDS ORDERED: KETOROLAC 60 MG VIAL (30MG/ML) IM ONE (01:30)
== END 2022-12-14 01:55 | disposition home or self-care (01) ==
LOC: EDH 22:51
DX: K57.32 Diverticulitis of large intestine without perforation or abscess without bleeding (principal); F41.9 Anxiety disorder, unspecified; J44.9 Chronic obstructive pulmonary disease, unspecified; I25.10 Atherosclerotic heart disease of native coronary artery without angina pectoris; E11.9 Type 2 diabetes mellitus without complications; K21.9 Gastro-esophageal reflux disease without esophagitis; I10 Essential (primary) hypertension; E66.01 Morbid (severe) obesity due to excess calories; Z79.1 Long term (current) use of non-steroidal anti-inflammatories (NSAID); Z79.82 Long term (current) use of aspirin; Z79.899 Other long term (current) drug therapy; Z86.16 Personal history of COVID-19; Z88.0 Allergy status to penicillin; Z88.1 Allergy status to other antibiotic agents; Z88.5 Allergy status to narcotic agent; Z90.49 Acquired absence of other specified parts of digestive tract; Z98.890 Other specified postprocedural states; Z68.41 Body mass index [BMI] 40.0-44.9, adult
CPT/HCPCS: 99285; 71045; 84484; 80053; 83690; 85025; 81003; 36415; 93005; 74176; 96374; J1885

== ENCOUNTER 2023-01-27 22:14 | Emergency (ER) | payer OTHER, MEDICARE ==
[~2023-01-27] VITALS: Ht 160 cm; Wt 110.2 kg
[~2023-01-27 22:14] MED LIST changes: +METR375C2 PO
[2023-01-27] MEDS ORDERED: IPRATROPIUM/ALBUTEROL SULFATE 3 ML SOLUTION IH PRN (22:30)
[2023-01-27] MEDS ORDERED: ASPIRIN 81MG CHEW TAB PO ONE (22:30)
[2023-01-27] MEDS ORDERED: NITROGLYCERIN 0.4 MG SL TAB SL PRN (22:30)
[2023-01-27 22:48] LABS: BASOPHILS % (AUTO) 0.3 % (0.0-5.0); EOSINOPHILS % (AUTO) 2.2 % (0.0-8.0); HEMATOCRIT 45.6 % (36-48); LYMPHOCYTES % (AUTO) 25.3 % (21.0-51.0); MEAN CORPUSCULAR HEMOGLOBIN 27.9 pg (27.0-33.0); MEAN CORPUSCULAR HGB CONC 31.8 g/dL (32.0-36.0); MEAN CORPUSCULAR VOLUME 87.7 fL (79-99); MONOCYTES % (AUTO) 5.8 % (3.0-13.0); NEUTROPHILS % (AUTO) 66.1 % (40.0-77.0); PLATELET COUNT (AUTO) 286 K/uL (130-400); RED CELL DISTRIBUTION WIDTH 13.4 % (11.0-15.5); WHITE BLOOD COUNT (AUTO) 9.6 K/uL (4.8-10.8)
[2023-01-27 23:02] LABS: POTASSIUM 3.7 mmol/L (3.5-5.1)
[2023-01-27 23:09] LABS: ALBUMIN 3.6 g/dL (3.5-5.0); TOTAL PROTEIN, SERUM 8.2 g/dL (6.0-8.3)
[2023-01-27 23:59] LABS: APPEARANCE,URINE CLEAR (CLEAR); BILIRUBIN,URINE NEGATIVE (NEGATIVE); COLOR,URINE COLORLESS (YELLOW); GLUCOSE, URINE (UA) NEGATIVE (NEGATIVE); KETONES,URINE NEGATIVE (NEGATIVE); LEUKOCYTE ESTERASE ,URINE NEGATIVE Leu/uL (NEGATIVE); NITRATE,URINE NEGATIVE (NEGATIVE); OCCULT BLOOD,URINE NEGATIVE (NEGATIVE); PH,URINE 6.5 (5.0-8.0); PROTEIN,URINE NEGATIVE (NEGATIVE); UROBILINOGEN,URINE 0.2 mg/dL (0.2-1.0)
[2023-01-28] MEDS ORDERED: IOHEXOL 350 MG/ML 100ML INFUS..BTL IV ONE (01:05)
[2023-01-28] MEDS ORDERED: SOLU-MEDROL 125MG VIAL IVP ONE (02:30)
[2023-01-28] MEDS ORDERED: IPRATROPIUM/ALBUTEROL SULFATE 3 ML SOLUTION IH ONE (02:30)
[2023-01-28] MEDS ORDERED: DOXY-252 PO (02:50)
[2023-01-28 02:55] VITALS: BP 124/60
== END 2023-01-28 03:32 | disposition home or self-care (01) ==
LOC: EDH 22:14
DX: J44.1 Chronic obstructive pulmonary disease with (acute) exacerbation (principal); I10 Essential (primary) hypertension; E11.9 Type 2 diabetes mellitus without complications; E66.01 Morbid (severe) obesity due to excess calories; E78.00 Pure hypercholesterolemia, unspecified; F41.9 Anxiety disorder, unspecified; K21.9 Gastro-esophageal reflux disease without esophagitis; Z79.52 Long term (current) use of systemic steroids; Z79.82 Long term (current) use of aspirin; Z79.84 Long term (current) use of oral hypoglycemic drugs; Z79.899 Other long term (current) drug therapy; Z90.49 Acquired absence of other specified parts of digestive tract; Z98.890 Other specified postprocedural states; Z88.0 Allergy status to penicillin; Z88.1 Allergy status to other antibiotic agents; Z88.5 Allergy status to narcotic agent; Z88.8 Allergy status to other drugs, medicaments and biological substances
CPT/HCPCS: 99284; 71045; 84484 ×2; 80053; 83880; 85025; 85378; 82948; 81003; 36415; 93005; 94640 ×2; 96374; 71270; J2930; Q9967

== ENCOUNTER → 2023-05-25 | Outpatient (CLI) | payer OTHER, MEDICARE ==
[~2023-05-25] MED LIST changes: +DOXY-252 PO
== END | disposition home or self-care (01) ==
LOC: RAH 09:25
PROVIDERS: ATTEND Internal Medicine Cardiovascular Disease
DX: R60.0 Localized edema (principal)
CPT/HCPCS: 93970

== ENCOUNTER 2023-08-16 08:06 | Day surgery (SDC) | payer OTHER, MEDICARE ==
[~2023-08-16] VITALS: Ht 167.6 cm; Wt 108.9 kg
[2023-08-16] VITALS (11 sets, daily range): BP systolic 101–137; BP diastolic 41–63; PULSE 55–67; RESP 14–20
[~2023-08-16 08:06] MED LIST changes: -ASPI-556 PO; -CYCL10TA16 PO; +DICY20TA3 PO; -DOXY-252 PO; -FLUT16H NASAL; +INSU100C14 SQ; +IPRA3AMP24 IH; -MECL-160 PO; -METR375C2 PO; +MOM30 PO; +MONT-39 PO; -NAPR-1180 PO; +ONDA8TAB12 PO; +PRED10TA3 PO; -ROSU5TAB PO
[2023-08-16] MEDS ORDERED: PROPOFOL 10 MG/ML 20ML VIAL IV ONE (11:26)
== END 2023-08-16 13:05 | disposition home or self-care (01) ==
LOC: ENDO 08:06 → DAH 08:06 → ENDO 13:05
PROVIDERS: ATTEND Internal Medicine Gastroenterology
DX: K21.9 Gastro-esophageal reflux disease without esophagitis (principal); K29.50 Unspecified chronic gastritis without bleeding; K31.89 Other diseases of stomach and duodenum; K22.2 Esophageal obstruction; K31.A11 Gastric intestinal metaplasia without dysplasia, involving the antrum; I10 Essential (primary) hypertension; J44.9 Chronic obstructive pulmonary disease, unspecified; I63.9 Cerebral infarction, unspecified; F41.9 Anxiety disorder, unspecified; F32.A Depression, unspecified; M10.9 Gout, unspecified; I25.10 Atherosclerotic heart disease of native coronary artery without angina pectoris; K58.1 Irritable bowel syndrome with constipation; Z83.3 Family history of diabetes mellitus; Z82.61 Family history of arthritis; Z80.9 Family history of malignant neoplasm, unspecified; Z82.5 Family history of asthma and other chronic lower respiratory diseases; Z88.0 Allergy status to penicillin; Z88.6 Allergy status to analgesic agent; Z88.8 Allergy status to other drugs, medicaments and biological substances; Z88.1 Allergy status to other antibiotic agents; Z82.49 Family history of ischemic heart disease and other diseases of the circulatory system; Z79.899 Other long term (current) drug therapy; Z79.84 Long term (current) use of oral hypoglycemic drugs; Z87.891 Personal history of nicotine dependence; Z90.49 Acquired absence of other specified parts of digestive tract; Z98.890 Other specified postprocedural states
CPT/HCPCS: 82948 ×2; 43239; 43248; J2704; A4620; A4215 ×2; A4223; A7002; A4222; A4221; A4663; A4216; J7030; A4606; J3490

== ENCOUNTER 2023-08-19 00:30 | Emergency (ER) | payer OTHER, MEDICARE ==
[~2023-08-19] VITALS: Ht 167.6 cm; Wt 110.2 kg
[2023-08-19] MEDS ORDERED: MAG/ALUM/SIMETH 30 ML UDCUP PO ONE (01:00)
[2023-08-19 01:03] LABS: BASOPHILS # (AUTO) 0.04 K/uL (0.00-0.20); BASOPHILS % (AUTO) 0.5 % (0.0-5.0); EOSINOPHILS % (AUTO) 2.4 % (0.0-8.0); HEMATOCRIT 43.8 % (36-48); IMMATURE GRANULOCYTE ABSOLUTE 0.02 K/uL (0-1); LYMPHOCYTES % (AUTO) 23.9 % (21.0-51.0); MEAN CORPUSCULAR HEMOGLOBIN 28.5 pg (27.0-33.0); MEAN CORPUSCULAR HGB CONC 32.2 g/dL (32.0-36.0); MEAN CORPUSCULAR VOLUME 88.5 fL (79-99); MONOCYTES # (AUTO) 0.8 K/uL (0.1-1.0); MONOCYTES % (AUTO) 9.4 % (3.0-13.0); NEUTROPHILS # (AUTO) 5.3 K/uL (1.8-7.7); NEUTROPHILS % (AUTO) 63.6 % (40.0-77.0); PLATELET COUNT (AUTO) 267 K/uL (130-400); RED BLOOD CELL COUNT(AUTO) 4.95 MIL/uL (4.00-5.50); RED CELL DISTRIBUTION WIDTH 13.3 % (11.0-15.5); WHITE BLOOD COUNT (AUTO) 8.4 K/uL (4.8-10.8)
[2023-08-19 01:05] LABS: APPEARANCE,URINE CLEAR (CLEAR); BILIRUBIN,URINE NEGATIVE (NEGATIVE); COLOR,URINE COLORLESS (YELLOW); GLUCOSE, URINE (UA) NEGATIVE (NEGATIVE); KETONES,URINE NEGATIVE (NEGATIVE); LEUKOCYTE ESTERASE ,URINE 75 Leu/uL (NEGATIVE); NITRATE,URINE NEGATIVE (NEGATIVE); OCCULT BLOOD,URINE NEGATIVE (NEGATIVE); PH,URINE 5.5 (5.0-8.0); PROTEIN,URINE NEGATIVE (NEGATIVE); UROBILINOGEN,URINE 0.2 mg/dL (0.2-1.0)
[2023-08-19 01:07] LABS: ADD UA MICROSCOPIC YES
[2023-08-19 01:12] LABS: CARBON DIOXIDE 28 mmol/L (21-32); CHLORIDE 102 mmol/L (101-111); CREATININE 0.9 mg/dL (0.5-1.5); GLOMERULAR FILTR. RATE CALC 71 mL/min (>90); GLUCOSE,RANDOM 123 mg/dL (70-105); POTASSIUM 3.8 mmol/L (3.5-5.1); RBC,URINE 0-1 /HPF (0-1); SODIUM SERUM 137 mmol/L (136-145); UREA NITROGEN, BLOOD 4 mg/dL (7-18)
[2023-08-19 01:19] LABS: ALANINE AMINOTRANSFERASE 29 U/L (12-78); ALBUMIN 3.3 g/dL (3.5-5.0); ASPARTATE AMINOTRANSFERASE 32 U/L (10-37); BILIRUBIN,TOTAL 0.3 mg/dL (0.2-1.0); CREATINE KINASE, TOTAL 87 U/L (21-232); TOTAL PROTEIN, SERUM 7.9 g/dL (6.0-8.3)
[2023-08-19 01:40] LABS: B-TYPE NATRIURETIC PEPTIDE 11 pg/mL (0-100)
[2023-08-19] MEDS ORDERED: DIATR MEGLU/DIATRIZOATE SODIUM 30 ML BOTTLE ONE (01:55)
[2023-08-19] MEDS ORDERED: IOHEXOL 350 MG/ML 100ML INFUS..BTL IV ONE (01:55)
[2023-08-19] MEDS ORDERED: HYDROMORPHONE 0.5 MG SYG (0.5MG/0.5ML) IVP ONE (02:00)
[2023-08-19 03:52] VITALS: BP 145/61; PULSE 72; RESP 16; O2SAT 95
[2023-08-19] MEDS ORDERED: CARAL PO (04:06)
== END 2023-08-19 04:43 | disposition home or self-care (01) ==
LOC: EDH 00:30
DX: R10.13 Epigastric pain (principal); R07.89 Other chest pain; I10 Essential (primary) hypertension; E11.9 Type 2 diabetes mellitus without complications; E78.00 Pure hypercholesterolemia, unspecified; F41.9 Anxiety disorder, unspecified; K21.9 Gastro-esophageal reflux disease without esophagitis; J45.909 Unspecified asthma, uncomplicated; M19.90 Unspecified osteoarthritis, unspecified site; Z79.82 Long term (current) use of aspirin; Z79.84 Long term (current) use of oral hypoglycemic drugs; Z79.899 Other long term (current) drug therapy; Z98.890 Other specified postprocedural states; Z90.49 Acquired absence of other specified parts of digestive tract; Z90.89 Acquired absence of other organs; Z88.0 Allergy status to penicillin; Z88.1 Allergy status to other antibiotic agents; Z88.5 Allergy status to narcotic agent; Z88.8 Allergy status to other drugs, medicaments and biological substances
CPT/HCPCS: 99285; 71260; 96374; 71045; 82550; 83735; 84484; 80053; 83880; 83690; 85025; 87088; 81001; 36415; 74177; 93005; Q9963; J1170; Q9967

== ENCOUNTER 2024-01-14 21:27 | Emergency (ER) | payer OTHER, MEDICARE ==
[~2024-01-14] VITALS: Ht 157.5 cm; Wt 108.0 kg
[~2024-01-14 21:27] MED LIST changes: +CARAL PO
[2024-01-14 22:11] LABS: BASOPHILS # (AUTO) 0.02 K/uL (0.00-0.20); BASOPHILS % (AUTO) 0.2 % (0.0-5.0); HEMATOCRIT 41.1 % (36-48); IMMATURE GRANULOCYTE ABSOLUTE 0.05 K/uL (0-1); LYMPHOCYTES # (AUTO) 0.9 K/uL (1.0-4.8); LYMPHOCYTES % (AUTO) 7.5 % (21.0-51.0); MEAN CORPUSCULAR HEMOGLOBIN 28.1 pg (27.0-33.0); MEAN CORPUSCULAR HGB CONC 33.1 g/dL (32.0-36.0); MEAN CORPUSCULAR VOLUME 84.9 fL (79-99); MONOCYTES # (AUTO) 0.2 K/uL (0.1-1.0); MONOCYTES % (AUTO) 1.9 % (3.0-13.0); PLATELET COUNT (AUTO) 309 K/uL (130-400); RED BLOOD CELL COUNT(AUTO) 4.84 MIL/uL (4.00-5.50); WHITE BLOOD COUNT (AUTO) 12.2 K/uL (4.8-10.8)
[2024-01-14 22:22] LABS: CREATININE 0.9 mg/dL (0.5-1.0)
[2024-01-14 22:31] LABS: ALBUMIN 3.3 g/dL (3.5-5.0); BILIRUBIN,TOTAL 0.2 mg/dL (0.2-1.0); MAGNESIUM 2.1 mg/dL (1.80-2.40)
[2024-01-14 22:43] VITALS: BP 116/50; PULSE 59; RESP 14; O2SAT 98
[2024-01-15] MEDS: 0.9%NACL 1000ML 1,000 ML IV ONE (00:09)
== END 2024-01-15 01:46 | disposition home or self-care (01) ==
LOC: EDH 21:27
DX: R09.89 Other specified symptoms and signs involving the circulatory and respiratory systems (principal); E86.9 Volume depletion, unspecified; R55 Syncope and collapse; E11.9 Type 2 diabetes mellitus without complications; E66.01 Morbid (severe) obesity due to excess calories; E78.00 Pure hypercholesterolemia, unspecified; F41.9 Anxiety disorder, unspecified; I10 Essential (primary) hypertension; I25.10 Atherosclerotic heart disease of native coronary artery without angina pectoris; K21.9 Gastro-esophageal reflux disease without esophagitis; J45.909 Unspecified asthma, uncomplicated; Z79.84 Long term (current) use of oral hypoglycemic drugs; Z79.899 Other long term (current) drug therapy; Z86.16 Personal history of COVID-19; Z88.0 Allergy status to penicillin; Z88.1 Allergy status to other antibiotic agents; Z88.5 Allergy status to narcotic agent; Z90.49 Acquired absence of other specified parts of digestive tract
CPT/HCPCS: 99285; 96360; 71045; 82550; 83735; 84484 ×2; 80053; 85025; 36415; 93005; J7030

== ENCOUNTER → 2024-01-25 | Outpatient (CLI) | payer OTHER, MEDICARE ==
[2024-01-25 12:54] LABS: THYROID STIMULATING HORMONE 1.66 uIU/mL (0.36-3.74)
[2024-01-25 13:05] LABS: HIV 1&2 ANTIBODY Non-Reactive (Negative); HIV-1 p24 Antigen Non-Reactive (Negative)
[2024-01-26 11:21] LABS: RAPID PLASMA REAGIN NONREACTIVE (NONREACTIVE)
== END | disposition home or self-care (01) ==
LOC: LAB 08:37
PROVIDERS: ATTEND Internal Medicine Cardiovascular Disease
DX: I10 Essential (primary) hypertension (principal); G62.9 Polyneuropathy, unspecified; Z79.899 Other long term (current) drug therapy
CPT/HCPCS: 36415; 82533; 82607; 82746; 84439; 84443; 86592; 86701; 87390

== ENCOUNTER 2024-11-11 22:16 | Emergency (ER) | payer OTHER, MEDICARE ==
[~2024-11-11] VITALS: Ht 167.6 cm; Wt 108.4 kg
[~2024-11-11 22:16] MED LIST changes: +ONDA-245 PO; -ONDA8TAB12 PO
[2024-11-11 22:56] LABS: BASOPHILS # (AUTO) 0.05 K/uL (0.00-0.20); BASOPHILS % (AUTO) 0.4 % (0.0-5.0); EOSINOPHILS # (AUTO) 0.11 K/uL (0.00-0.70); HEMATOCRIT 43.5 % (36-48); IMMATURE GRANULOCYTE ABSOLUTE 0.08 K/uL (0-1); LYMPHOCYTES # (AUTO) 1.3 K/uL (1.0-4.8); LYMPHOCYTES % (AUTO) 10.9 % (21.0-51.0); MEAN CORPUSCULAR HEMOGLOBIN 27.9 pg (27.0-33.0); MEAN CORPUSCULAR VOLUME 87.3 fL (79-99); MONOCYTES # (AUTO) 0.3 K/uL (0.1-1.0); MONOCYTES % (AUTO) 2.9 % (3.0-13.0); NEUTROPHILS # (AUTO) 9.7 K/uL (1.8-7.7); NEUTROPHILS % (AUTO) 84.1 % (40.0-77.0); PLATELET COUNT (AUTO) 316 K/uL (130-400); RED BLOOD CELL COUNT(AUTO) 4.98 MIL/uL (4.00-5.50); RED CELL DISTRIBUTION WIDTH 14.2 % (11.0-15.5); WHITE BLOOD COUNT (AUTO) 11.5 K/uL (4.8-10.8)
[2024-11-11 23:07] LABS: POTASSIUM 3.9 mmol/L (3.5-5.1)
[2024-11-11 23:25] LABS: B-TYPE NATRIURETIC PEPTIDE 74 pg/mL (0-100)
--- NOTE | 2024-11-11 23:27 | ERN ---
ED Note History of Present Illness Stated Complaint: CHEST PAIN Chief Complaint: Chest Pain Dictation: This is a 64-year-old obese female who presented to the emergency room with multiple somatic complaints she needed to be redirected multiple times as she is a very poor historian with complaints of pain nausea then psoriasis then panic She stated that she has had dysphagia and chest tightness. This afternoon her sugar was high and after she took the insulin it went down to 80 so she drank a regular Coke. Subsequently she started feeling nausea but did not throw up she also has chronic congestion in the chest and clear sputum. No fevers chills or rigors. No hematemesis or melena after her long hospitalization with COVID, she developed severe pain all over her body, fatigue. She has had history of auton omic dysfunction with a labile blood pressure and at times palpitations as well as chest tightness. She indicated that her blood pressure was high at home. She has had similar presentation in the past and multiple ER visits and stated that she has 7 types of arthritis and over 60 diagnoses of ailments. Apparently Dr. Chan the manager market research has really streamlined her polypharmacy and currently she is only on olmasetron. Temperature 98.6 pulse 91 respirations 20 blood pressure 184/79 with a pulse oximetry of 98% on room air Pertinent PMH: Asthma, CAD but cardiac workup so far is negative., diabetes, high cholesterol, hypertension, GERD, anxiety, tonsillectomy, cholecystectomy, She has had anterior spinal surgery sinuplasty and reports a history of a se izure. Allergies: Coded Allergies: codeine (Unverified Allergy, Intermediate, HIVES, 09/27/16) Penicillins (Verified Allergy, Unknown, 05/20/15) budesonide (Unverified Allergy, Unknown, SWOLLEN TONGUE, 05/20/15) cefprozil (Unverified Allergy, Unknown, SWOLLEN TONGUE, 05/20/15) cephalexin (Unverified Allergy, Unknown, SWOLLEN TONGUE, 05/20/15) formoterol (Unverified Allergy, Unknown, SWOLLEN TONGUE, 05/20/15) tiotropium (Unverified Allergy, Unknown, SWOLLEN TONGUE, 05/20/15) Home Meds Active Scripts Sucralfate (Carafate Susp) 1 Gram/10 Ml Susp, 1 GM PO QID, #120 ML Prov:SHAMAA,NIRMAL M MD 08/19/23 Reported Medications Magnesium Hydroxide (Milk of Magnesium 30Ml) 400 Mg/5 Ml Susp, 30 ML PO AM, ML 08/14/23 Dicyclomine HCl (Dicyclomine HCl) 20 Mg Tablet, 20 MG PO BID, TAB 08/14/23 Ondansetron (Ondansetron Odt) 8 Mg Tab.rapdis, 8 MG PO TID, TAB 08/14/23 Insulin Lispro (Humalog) 100 Unit/Ml Cartridge, 0 SQ AD, CARTRIDGE 08/14/23 Ipratropium/Albuterol Sulfate (Iprat-Albut 0.5-3(2.5) mg/3 ml) 0.5 Mg-3 Mg (2.5 Mg Base)/3 Ml Ampul.neb, 3 ML IH Q4HPRN PRN for RESPIRATORY SYMPTOMS 08/14/23 Prednisone (Prednisone) 10 Mg Tablet, 10 MG PO AM, TAB 08/14/23 Montelukast Sodium (Montelukast Sodium) 10 Mg Tablet, 10 MG PO HS, TAB 08/14/23 Amlodipine Besylate (Amlodipine Besylate) 5 Mg Tablet, 5 MG PO DAILY, TAB 01/27/20 Lorazepam (Ativan) 1 Mg Tablet, 1 MG PO BID, TAB 01/27/20 Olmesartan Medoxomil (Olmesartan Medoxomil) 40 Mg Tablet, 40 MG PO DAILYBKFST, TAB 01/27/20 Furosemide (Furosemide) 40 Mg Tablet, 40 MG PO DAILY, TAB 01/27/20 Albuterol Sulfate (Proair Respiclick) 90 Mcg Aer.pow.ba, 90 MCG IH BID 09/27/16 Metformin HCl (Metformin HCl) 500 Mg Tablet, 500 MG PO BID, TAB 05/20/15 Omeprazole (Omeprazole) 40 Mg Capsule.dr, 40 MG PO AM, CAP 05/20/15 Past Medical History Past Medical History: Asthma, COPD, Diabetes-Type II, Hypertension, Seizure Additional Past Medical Hx: COVID 01/2020, morbidly obese Surgical History: Unknown Surgical History Other: HEART CATH, SINUPALSTY, SPINAL SURGERY WITH TITATIUN, BILATERAL KNEE SURGER Family History: Negative Social History: Drugs (She used to take CBD pills prescribed by her policy loan calculator which made her gain weight and has been stopped.), Negative, Other RN Note Reviewed/Agreed w/PFSH: Yes Review of System Dictation Constitutional: Negative for fever,chills, and weight loss Eyes: Negative for injury, pain,redness, and discharge ENT: Negative for injury,pain or swelling Cardiovascular: Positive for chest pain, palpitations, and edema Respiratory: Positive for shortness of breath, cough, and wheezing, Abdomen/GI: Positive for abdominal pain, nausea, denied vomiting, diarrhea, and constipation Back: Negative for injury and pain : Negative for injury, bleeding and discharge MS/Extremity: Negative for injury and deformity positive for aches all over and pains Skin: Negative for rash, and discoloration positive for psoriasis Neuro: Negative for headache, weakness, numbness, tingling, and seizure Psych: Negative for suicide ideation, homicidal ideation, and hallucinations Initial Vital Sign VS Vital Signs Date Time Temp Pulse Resp B/P (MAP) Pulse Ox O2 Delivery O2 Flow Rate FiO2 11/11/24 22:21 98.6 91 20 184/79 98 Room Air 11/11/24 22:48 2 28 Physical Exam Dictation General: awake, alert, NAD morbidly obese generally anxious preoccupied with multiple symptoms Head/Face: Normocephalic, atraumatic Eyes: PERRL, EOMI, vision at baseline ENT: oral cavity clear, TMs clear, no signs of infection Neck: Trachea midline, supple, no nuchal rigidity Cardiovascular: RRR, normal S1/S2, No MRGs, no JVD Respiratory: CTAB, no respiratory distress, No rales or wheezes Abdomen: Soft, non-tender, non-distended, normal bowel sounds, no guarding or rebound. Skin: Warm, dry, normal turgor, no rash MS/Extremity: Pulses equal, no cyanosis, neurovascular intact, FROM Neuro: COAx4, GCS 15, strength 5/5, CN 2-12 intact, normal cerebellar exam, normal gait, Psych: Normal behavior, mood, and affect normal Extremities-trace edema without any palpable cords, Homans sign is negative Results (Laboratory/Radiology) Laboratory/Radiology Laboratory Tests Test 11/11/24 22:38 11/11/24 23:13 White Blood Count 11.5 K/uL (4.8-10.8) H Red Blood Count 4.98 MIL/uL (4.00-5.50) Hemoglobin 13.9 g/dL (12.0-16.0) Hematocrit 43.5 % (36-48) Mean Corpuscular Volume 87.3 fL (79-99) Mean Corpuscular Hemoglobin 27.9 pg (27.0-33.0) Mean Corpuscular Hemoglobin Concent 32.0 g/dL (32.0-36.0) Red Cell Distribution Width 14.2 % (11.0-15.5) Platelet Count 316 K/uL (130-400) Mean Platelet Volume 10.1 fL (7.5-10.5) Immature Granulocyte % (Auto) 0.7 % (0-1) Neutrophils (%) (Auto) 84.1 % (40.0-77.0) H Lymphocytes (%) (Auto) 10.9 % (21.0-51.0) L Monocytes (%) (Auto) 2.9 % (3.0-13.0) L Eosinophils (%) (Auto) 1.0 % (0.0-8.0) Basophils (%) (Auto) 0.4 % (0.0-5.0) Neutrophils # (Auto) 9.7 K/uL (1.8-7.7) H Lymphocytes # (Auto) 1.3 K/uL (1.0-4.8) Monocytes # (Auto) 0.3 K/uL (0.1-1.0) Eosinophils # (Auto) 0.11 K/uL (0.00-0.70) Basophils # (Auto) 0.05 K/uL (0.00-0.20) Absolute Immature Granulocyte (auto 0.08 K/uL (0-1) Nucleated Red Blood Cells 0.0 % (0.0-0.19) Sodium Level 140 mmol/L (136-145) Potassium Level 3.9 mmol/L (3.5-5.1) Chloride Level 104 mmol/L (101-111) Carbon Dioxide Level 26 mmol/L (21-32) Blood Urea Nitrogen 8 mg/dL (7-18) Creatinine 1.0 mg/dL (0.5-1.0) Glomerular Filtration Rate Calc 62 mL/min (>90) Random Glucose 145 mg/dL (70-105) H Total Calcium 9.0 mg/dL (8.5-10.1) Total Creatine Kinase 70 U/L (21-232) B-Type Natriuretic Peptide 74 pg/mL (0-100) Troponin I < 0.05 ng/mL (0.00-0.05) Labs Reviewed?: Yes EKG Comment: 12 lead EKG done on 11/11/2024 at 10:28 p.m. showed a rate of 81, MS interval 121, QRS 79, QT/QTC 361/419. Impression normal sinus rhythm with ventricular trigeminy intermittently and overall low voltage and poor progression of the R-waves. No acute ST elevations or deep ST depressions noted. Interpreted by ER MD Dr. Wood ED Course ED Course Orders Procedure Category Date Status Time Vital Signs Per CPOE 11/11/24 Transmitted Routine 22:26 B-Type Natriuretic LAB 11/11/24 Complete Peptide 22:26 Chest 1vw RAD 11/11/24 Taken 22:26 12 Lead Ekg Tracing- EKG 11/11/24 Logged Technical 22:26 Oxygen By Nc/Pulse Ox CPOE 11/11/24 Transmitted 22:26 Maintain Iv CPOE 11/11/24 Transmitted 22:26 Iv Insertion CPOE 11/11/24 Transmitted 22:26 Cardiac Monitoring CPOE 11/11/24 Transmitted 22:26 Pulse Oximetry With CPOE 11/11/24 Transmitted Vs And Prn 22:26 Cbc With Differential LAB 11/11/24 Complete 22:26 Activity: Br W/Brp CPOE 11/11/24 Transmitted With Assist 22:26 Creatine Kinase, Total LAB 11/11/24 Complete 22:26 Urinalysis Profile LAB 11/11/24 In Process 22:26 Troponin Poc Order LAB 11/11/24 Complete Only 22:26 Bedside Troponin-I LAB.ER 11/11/24 In Process (Poc) 22:26 Basic Metabolic Panel LAB 11/11/24 Complete 22:26 Ketorolac PHA 11/11/24 Complete Tromethamine 30mg/Ml 23:30 Ondansetron 4mg Inj PHA 11/12/24 Complete (Zofran 4mg Inj) 00:00 Current Medications Medications (Trade) Dose Ordered Sig/Hyacinth Route PRN Reason Start Time Stop Time Status Last Admin Dose Admin Ketorolac Tromethamine (toRADol) 30 mg ONCE ONCE IVP 11/11/24 23:30 2/10/25 23:31 DC 11/11/24 23:58 Ondansetron HCl (zoFRAN 4MG INJ) 4 mg ONCE ONCE IVP 11/12/24 00:00 11/12/24 00:01 DC 11/11/24 23:58 Vital Signs Date Time Temp Pulse Resp B/P (MAP) Pulse Ox O2 Delivery O2 Flow Rate FiO2 11/11/24 23:59 98.6 76 18 145/48 98 Nasal Cannula* 2 28 11/11/24 22:48 98.4 86 18 158/78 98 Nasal Cannula* 2 28 11/11/24 22:21 98.6 91 20 184/79 98 Room Air We will perform diagnostic labs, advanced imaging and administer medications according to the patient's complaint. Once the results are available, will review and personally interpreted the labs to rule out any acute life- threatening emergency the trach require immediate intervention and treatment. I will then re-evaluate the patient after treatment and diagnostic exams have return to determine whether the patient requires any further testing, can safely be discharged home or need further admission to hospital for additional treatment and evaluation. CBC showed a white count of 11.5 hemoglobin is 13. BNP 7 is within normal limits sugar 145. Troponins negative chest x-ray shows chronic hyperinflation with a dirty lungs of COPD. I had a long discussion with her and her daughter and went over all the workup so far and explained to her that some of her symptoms are possibly from long COVID and also from autonomic dysfunction due to spinal surgery diabetes related complications. She has not appointment with her primary care physician tomorrow and I recommended that she be re evaluated for esophageal dilatation which helped her in the past I have counseled her on weight loss lifestyle changes and streamlining the polypharmacy, avoidance of caffeinated drinks which could precipitate more bigeminy and trigeminy and arrhythmias. HEART Score Response (Comments) Value History: Low suspicion (0) 0 EKG: Normal 0 Age: > 65yrs (+2) 2 Risk Factors: 1-2 risk factors (+1) 1 Initial Troponin: Normal limit (0) 0 HEART Score Risk: Low Risk for MACE (1-3) Total 3 Medical Decision Making MDM MDM: Differential diagnosis: Rationale: Tests considered and ordered secondary to shared decision making include: Previous outside records reviewed: Old ER visits. Risk of complication and/or morbidity or mortality of patient management: None Medications-Per medication reconciliation Need for hospitalization: Patient does not meet criteria for hospitalization. Need for emergency major/minor surgery: No There are no social concerns with this patient. Prescription drug management Prescriptions will include symptomatic care Patient's prior external medical records from other ER visits were reviewed by me as indicated. Prior testing and results from previous visits were reviewed. Prior tests were taken into account with medical decision making and resource utilization, independent historian/historians were used to obtain complete medical history. I independently interpreted the test that were performed, results were reviewed by me and considered findings on radiology if ordered. Medical management and examination interpretation discussions were had by me with other qualified healthcare professionals as indicated for the patient's care. Problem List Problem List: (1) Chest pain (2) Esophageal spasm (3) Labile blood pressure (4) Morbidly obese DX & DISP Disposition: Discharge Departure Impression: Primary Impression: Chest pain Additional Impressions: Morbidly obese, Esophageal spasm, Labile blood pressure Condition: Stable Additional Instructions: Patient and the caregiver have been informed of all the diagnostic tests and the imaging conducted during the today's visit to the emergency room and has verbalized understanding of the results I have personally reviewed and interpreted all diagnostic exams performed here in the ER today as well as the vital signs documented by the nursing staff. The patient is now being discharged to home and should follow up with the primary care physician or the specialist as directed by the ER staff. Follow-up with primary care provider in 1 to 2 days. Take medications as directed here in the emergency room. Okay to continue home medications unless otherwise discussed during your visit in the emergency room today. Return to your nearest emergency room if symptoms worsen or if there is no improvement. Call 911 if you need immediate assistance. Take Tylenol or Motrin [id number] as needed and if no contraindications are present. Increase oral hydration. A wound culture or urine culture was ordered here in the emergency room department please follow-up with primary care provider and advise them to get repeat ports from our facility. If you had any Eliud wrap/splints that were applied here, please do not remove them until you see your primary care or specialty. Referrals: OVIDIO MERRILL MD (PCP) LJ WOOD MD Nov 11, 2024 23:27
[2024-11-11] MEDS: ketOROlac 30MG VIAL (30MG/ML) IVP ONE (23:58)
[2024-11-11] MEDS: ondanSETRON 4MG INJ IVP ONE (23:58)
[2024-11-11 23:59] VITALS: BP 145/48; PULSE 76; RESP 18; TEMP 98.6; O2SAT 98
--- NOTE | 2024-11-12 00:41 | HMCIMG ---
CHEST 1VW HISTORY: Chest pain COMPARISON: 01/14/2024 FINDINGS: A frontal projection of the chest was obtained. Prominent interstitial markings are seen with possible superimposed infiltrates. The heart is borderline enlarged. Degenerative changes are seen. No evidence of aortic calcification is seen. IMPRESSION: 1. Prominent interstitial markings are seen with possible superimposed infiltrates.
--- NOTE | 2024-11-12 06:05 | EKG ---
[facility] Test Date: 2024-11-11 Test Time: 22:28:12 Pat Name: SHANEKA WHITE Department: [facility] Room: Gender: F Anesthesiology Physician: [id number] : 1960 Requested By: LJ WOOD Order Number: [id number] Reading MD: Marli Tyler Measurements Intervals [place] Rate: 81 P: 32 ID: [id number] QRS: 17 QRSD: 79 T: 37 QT: 361 QTc: 419 Interpretive Statements Sinus rhythm with Ventricular trigeminy Low voltage, precordial leads Compared to ECG 01/14/2024 21:40:15 Ventricular premature complex(es) now present Electronically Signed On 11-13-2024 17:08:04 PIANO CASE AND BENCH ASSEMBLER by Marli Tyler Please click the below link to view image of tracing.
== END 2024-11-12 00:11 | disposition home or self-care (01) ==
LOC: EDH 22:16
DX: R07.89 Other chest pain (principal); K22.4 Dyskinesia of esophagus; R09.89 Other specified symptoms and signs involving the circulatory and respiratory systems; E66.01 Morbid (severe) obesity due to excess calories; E11.9 Type 2 diabetes mellitus without complications; I10 Essential (primary) hypertension; J44.89 Other specified chronic obstructive pulmonary disease; Z79.84 Long term (current) use of oral hypoglycemic drugs; Z79.899 Other long term (current) drug therapy; Z88.0 Allergy status to penicillin; Z88.1 Allergy status to other antibiotic agents; Z88.5 Allergy status to narcotic agent
CPT/HCPCS: 99285; 96374; 71045; 96375; 82550; 84484; 80048; 83880; 85025; 36415; 93005; J1885; J2405

== ENCOUNTER 2024-11-14 20:45 | Emergency (ER) | payer OTHER, MEDICARE ==
[~2024-11-14] VITALS: Ht 167.6 cm; Wt 108.0 kg
[2024-11-14 20:47] VITALS: BP 136/74; PULSE 54; RESP 20; TEMP 98.6
[2024-11-14] MEDS ORDERED: 0.9%NACL 1000ML 1,000 ML IV ONE (21:00)
--- NOTE | 2024-11-14 21:03 | EKG ---
[facility] Test Date: 2024-11-14 Test Time: 20:55:19 Pat Name: SHANEKA WHITE Department: [facility] Room: Gender: F Etcher Apprentice: [id number] : 1960 Requested By: JOSIAH OLMEDO Order Number: [id number] Reading MD: Star Mcpherson Measurements Intervals [place] Rate: 58 P: 30 NH: 123 QRS: 25 QRSD: 80 T: 40 QT: 388 QTc: 380 Interpretive Statements Sinus rhythm Ventricular trigeminy Low voltage, precordial leads Compared to ECG 11/11/2024 22:28:12 No significant changes Electronically Signed On 11-15-2024 16:11:54 CAPTAIN'S ASSISTANT by Star Mcpherson Please click the below link to view image of tracing.
--- NOTE | 2024-11-14 21:08 | ERN ---
ED Note History of Present Illness Stated Complaint: C/O HIGH B/P W/ CHEST PRESSURE Chief Complaint: Hypertension Time Seen by MD: 20:49 Dictation: PATIENT IS A 64-YEAR-OLD FEMALE COMING IN TODAY WITH MULTIPLE COMPLAINTS. FIRST COMPLAINT IS WHEN SHE CHANGES POSITION FROM SITTING TO STANDING SHE GETS DIZZY. SECOND COMPLAINT IS SHE STATES SHE HAS BEEN HYPERTENSIVE FOR SEVERAL DAYS AND IS HAVING ANTERIOR CHEST PAIN WITH BURNING. SHE STATES SHE SAW HER PRIMARY CARE DOCTOR YESTERDAY AND WHO TOLD HER THAT HER BLOOD PRESSURE WAS NORMAL, THAT IT WAS PROBABLY HER ESOPHAGUS SINCE SHE HAS ESOPHAGITIS AND GERD. PATIENT STATES SHE SEES DR. TOWNSEND/NITA, GI SPECIALIST AND SHE TAKES OMEPRAZOLE. CURRENTLY PATIENT IS NORMOTENSIVE IN TRIAGE Allergies: Coded Allergies: codeine (Unverified Allergy, Intermediate, HIVES, 09/27/16) Penicillins (Verified Allergy, Unknown, 05/20/15) budesonide (Unverified Allergy, Unknown, SWOLLEN TONGUE, 05/20/15) cefprozil (Unverified Allergy, Unknown, SWOLLEN TONGUE, 05/20/15) cephalexin (Unverified Allergy, Unknown, SWOLLEN TONGUE, 05/20/15) formoterol (Unverified Allergy, Unknown, SWOLLEN TONGUE, 05/20/15) tiotropium (Unverified Allergy, Unknown, SWOLLEN TONGUE, 05/20/15) Home Meds Active Scripts Sucralfate (Carafate Susp) 1 Gram/10 Ml Susp, 1 GM PO QID, #120 ML Prov:NIRMAL PALMER MD 08/19/23 Reported Medications Magnesium Hydroxide (Milk of Magnesium 30Ml) 400 Mg/5 Ml Susp, 30 ML PO AM, ML 08/14/23 Dicyclomine HCl (Dicyclomine HCl) 20 Mg Tablet, 20 MG PO BID, TAB 08/14/23 Ondansetron (Ondansetron Odt) 8 Mg Tab.rapdis, 8 MG PO TID, TAB 08/14/23 Insulin Lispro (Humalog) 100 Unit/Ml Cartridge, 0 SQ AD, CARTRIDGE 08/14/23 Ipratropium/Albuterol Sulfate (Iprat-Albut 0.5-3(2.5) mg/3 ml) 0.5 Mg-3 Mg (2.5 Mg Base)/3 Ml Ampul.neb, 3 ML IH Q4HPRN PRN for RESPIRATORY SYMPTOMS 08/14/23 Prednisone (Prednisone) 10 Mg Tablet, 10 MG PO AM, TAB 08/14/23 Montelukast Sodium (Montelukast Sodium) 10 Mg Tablet, 10 MG PO HS, TAB 08/14/23 Amlodipine Besylate (Amlodipine Besylate) 5 Mg Tablet, 5 MG PO DAILY, TAB 01/27/20 Lorazepam (Ativan) 1 Mg Tablet, 1 MG PO BID, TAB 01/27/20 Olmesartan Medoxomil (Olmesartan Medoxomil) 40 Mg Tablet, 40 MG PO DAILYBKFST, TAB 01/27/20 Furosemide (Furosemide) 40 Mg Tablet, 40 MG PO DAILY, TAB 01/27/20 Albuterol Sulfate (Proair Respiclick) 90 Mcg Aer.pow.ba, 90 MCG IH BID 09/27/16 Metformin HCl (Metformin HCl) 500 Mg Tablet, 500 MG PO BID, TAB 05/20/15 Omeprazole (Omeprazole) 40 Mg Capsule.dr, 40 MG PO AM, CAP 05/20/15 Past Medical History Past Medical History: Heart Disease, Hypertension Additional Past Medical Hx: COVID 01/2020, morbidly obese Surgical History: Cholecystectomy, Other Surgical History Other: HEART CATH Family History: Negative Social History: Drugs, Negative, Other History: Not Applicable RN Note Reviewed/Agreed w/PFSH: Yes Review of System Dictation CONSTITUTIONAL: NEGATIVE EXCEPT FOR HPI HEAD/FACE: NEGATIVE EXCEPT FOR HPI EENT: NEGATIVE EXCEPT FOR HPI RESPIRATORY: NEGATIVE EXCEPT FOR HPI BURNING PAIN/CHEST PAIN GASTROINTESTINAL/ABDOMINAL: NEGATIVE EXCEPT FOR HPI GENITOURINARY: NEGATIVE EXCEPT FOR HPI MUSCULOSKELETAL: NEGATIVE EXCEPT FOR HPI INTEGUMENTARY: NEGATIVE EXCEPT FOR HPI NEUROLOGICAL/PSYCH: NEGATIVE EXCEPT FOR HPI ANXIETY HEMATOLOGIC/LYMPHATIC: NEGATIVE EXCEPT FOR HPI ALL SYSTEMS NEGATIVE, EXCEPT NOTED ABOVE. 13 POINT REVIEW OF SYSTEMS ASSESSED AND ALL NEGATIVE EXCEPT FOR ABOVE. Initial Vital Sign VS Vital Signs Date Time Temp Pulse Resp B/P (MAP) Pulse Ox O2 Delivery O2 Flow Rate FiO2 11/14/24 20:47 98.6 54 20 136/74 96 Room Air Physical Exam Dictation VITAL SIGNS REVIEWED GENERAL APPEARANCE: ALERT, ORIENTED X 3, NO ACUTE DISTRESS, WELL DEVELOPED, NOURISHED. PATIENT NOTED TO HAVE A BASELINE ANXIETY HEAD AND FACE: NON-TRAUMATIC. EYES: PERRL, PINK CONJUNCTIVAS, EYELID NO TRAUMA, ANTERIOR CHAMBER WITH ARCUS SENILIS. EARS: PINNAS INTACT AND NO SIGNS OF TRAUMA OR ERYTHEMA EAR CANALS CLEAR AND NO DISCHARGE TM NO ERYTHEMA NOSE: NO DISCHARGE, NO BLEEDING. OROPHARYNX: MOUTH NORMAL, TONGUE PINK, PHARYNX CLEAR,NO ERYTHEMA, TONSILS NO EXUDATES, NO ABSCESSES NOTED, MUCOUS MEMBRANE MOIST NECK: SUPPLE, NON-TENDER, NO THYROMEGALY, NO MASSES, NO JVD, NO BRUITS BREAST:DEFERRED CHEST:NO TENDERNESS, NO CREPITUS, NO PARADOXICAL MOVEMENT, NO RETRACTIONS LUNGS:CLEAR, WELL-VENTILATED, SYMMETRIC, NO RALES, NO WHEEZING, NO RHONCHI, NO STRIDOR, GOOD BREATH SOUNDS BILATERALLY HEART: REGULAR RATE, REGULAR RHYTHM, NO MURMUR, NO GALLOPS VASCULAR: NO PERIPHERAL EDEMA, ABDOMEN: SOFT, POSITIVE BOWEL SOUNDS, NONDISTENDED, NO GUARDING, NONTENDER, NO REBOUND, NO MASSES NO HEPATOMEGALY, NO SPLENOMEGALY, NO FISCHER'S SIGN, NO HERNIAS. RECTAL: DEFERRED GENITAL: DEFERRED NEUROLOGICAL: NORMAL SPEECH, MOTOR FUNCTION INTACT, SENSORY FUNCTION INTACT MUSCULOSKELETAL: NECK NONTENDER, FULL RANGE OF MOTION, BACK NONTENDER, FULL RANGE OF MOTION, EXTREMITIES: NONTENDER, FULL RANGE OF MOTION SKIN: COLOR PINK, DRY, NO TURGOR, NO RASH, NO LACERATIONS, NO ABRASIONS, NO CONTUSIONS. LYMPHATIC: DEFERRED Results (Laboratory/Radiology) Labs Reviewed?: Yes EKG Comment: EKG SINUS BRADYCARDIA/HEART RATE 58/UNIFOCAL BIGEMINY ED Course ED Course Orders Procedure Category Date Status Time Orthostatic Vital CPOE 11/14/24 Transmitted Signs 20:54 Cbc With Differential LAB 11/14/24 Logged 20:54 Troponin I High LAB 11/14/24 Logged Sensitivity 20:54 12 Lead Ekg Tracing- EKG 11/14/24 Complete Technical 20:54 0.9%Nacl 1000ml (Ns PHA 11/14/24 Complete 1000ml) 21:00 Basic Metabolic Panel LAB 11/14/24 Logged 20:54 Current Medications Medications (Trade) Dose Ordered Sig/Hyacinth Route PRN Reason Start Time Stop Time Status Last Admin Dose Admin Sodium Chloride 1,000 ml @ 0 mls/hr ONCE ONCE IV 11/14/24 21:00 11/14/24 21:01 DC Vital Signs Date Time Temp Pulse Resp B/P (MAP) Pulse Ox O2 Delivery O2 Flow Rate FiO2 11/14/24 20:47 98.6 54 20 136/74 96 Room Air 2114/PATIENT TOLD THE CHARGE NURSE AND TRIAGE NURSE THAT SHE WAS ANXIOUS AFTER ENTERING THE EMERGENCY ROOM. SHE STATES SHE DOES NOT WANT TO WAIT BECAUSE SHE KNOWS THAT THEY WILL NOT FIND ANYTHING AND THEN I HAVE TO GO BACK TO MY DOCTOR. I HAD SPENT 5-7 MINUTES IN TRIAGE TALKING TO HER ABOUT MY CARDIAC WORKUP THAT I WOULD CHECK ORTHOSTATICS, GIVE HER FLUIDS. SHE ALSO STATED SHE WOULD LIKE A GI COCKTAIL AND I ADVISED HER I WOULD BE GLAD TO DO THAT FOR HER IF THAT WOULD HELP WITH HER ESOPHAGEAL PAIN. HOWEVER I WANTED TO DO A CARDIAC WORKUP TO MAKE SURE I WAS NOT MISSING CARDIAC ETIOLOGY. SHE DID NOT WANT TO STAY AND SIGNED OUT AGAINST MEDICAL ADVICE. Medical Decision Making MDM MEDICAL DECISION-MAKING BASED ON PATIENT LEAVING AGAINST MEDICAL ADVICE. SHE TOLD GILLES CHARGE NURSE SAID SHE WAS TOO ANXIOUS TO STAY IN THE EMERGENCY ROOM, AND THAT SHE WOULD SEE YOUR PRIMARY CARE DOCTOR TOMORROW. SHE SIGNED OUT AGAINST MEDICAL ADVICE DX & DISP Disposition: AMA Departure Impression: Primary Impression: Anxiety Condition: Stable Referrals: OVIDIO MERRILL MD (PCP) Time of Disposition: 21:20 I have reviewed the case, and I agree with, Diagnosis and Plan JOSIAH OLMEDO NP Nov 14, 2024 21:08
--- NOTE | 2024-11-14 21:15 | NUR ---
PATIENT BROUGHT BACK TO ER FROM TRIAGE, UPON ARRIVING TO ER BED, PATIENT TOLD TRIAGE TECH, SHE WANTED TO LEAVE AMA AND DID NOT WANT TO STAY. I, EVANGELINA DE LA CRUZ RN, SPOKE TO PATIENT AND FAMILY MEMBER, PATIENT INFORMED ME SHE CHANGED HER MIND ABOUT BEING SEEN. PATIENT WANTS TO LEAVE AMA. PATIENT REPORTED BEING SEEN ON MONDAY, NOTHING WAS FOUND, AND BEING SEEM BY PRIMARY MD YESTERDAY, NOTHING WAS FOUND. PATIENT REPORTS JUST WANTING TO GO HOME. PATIENT AWARE OF RISKS ASSOCIATED WITH LEAVING AMA, PATIENT VERY ANXIOUS AND AGREED TO WAIT IN THE ER LOBBY TO SIGN AMA PAPERWORK. PHYSICIAN AND DENT REMOVER BOTH MADE AWARE OF PATIENT LEAVING AMA
--- NOTE | 2024-11-14 21:20 | NUR ---
PATIENT AND FAMILY MEMEBER IN ER LOBBY, PATIENT LEAVING AMA, AMA FORM SIGNED.
== END 2024-11-14 21:20 | disposition left against medical advice (07) ==
LOC: EDH 20:45
DX: F41.9 Anxiety disorder, unspecified (principal); E66.01 Morbid (severe) obesity due to excess calories; I11.9 Hypertensive heart disease without heart failure; Z79.84 Long term (current) use of oral hypoglycemic drugs; Z79.899 Other long term (current) drug therapy; Z88.0 Allergy status to penicillin; Z88.1 Allergy status to other antibiotic agents; Z88.5 Allergy status to narcotic agent; Z90.49 Acquired absence of other specified parts of digestive tract
CPT/HCPCS: 93005; 99283

== ENCOUNTER 2025-01-09 07:16 | Day surgery (SDC) | payer OTHER, MEDICARE ==
[2025-01-09] VITALS (11 sets, daily range): BP systolic 90–134; BP diastolic 45–75; PULSE 60–73; RESP 16–18; TEMP 97–97.7
[~2025-01-09] VITALS: Ht 165.1 cm; Wt 103.9 kg
[2025-01-09] MEDS: 0.9%NACL 1000ML 1,000 ML IV ONE (07:50)
[2025-01-09] MEDS ORDERED: TRAM100C2 PO (07:58)
[2025-01-09] MEDS ORDERED: ONDA-105 SL (07:58)
[2025-01-09] MEDS ORDERED: FLUT15.845 NS (07:58)
[2025-01-09] MEDS ORDERED: CETI10TA57 PO (07:58)
[2025-01-09] MEDS ORDERED: OXYM30SP27 NS (07:58)
[2025-01-09] MEDS ORDERED: GABA-1405 PO (07:58)
[2025-01-09] MEDS ORDERED: proPOFol 10 MG/ML 20ML VIAL IV ONE (08:51)
== END 2025-01-09 10:05 | disposition home or self-care (01) ==
LOC: ENDO 07:16 → DAH 07:16 → ENDO 10:05
PROVIDERS: ATTEND Internal Medicine Gastroenterology
DX: R13.10 Dysphagia, unspecified (principal); K29.50 Unspecified chronic gastritis without bleeding; K21.9 Gastro-esophageal reflux disease without esophagitis; R11.10 Vomiting, unspecified; K31.A0 Gastric intestinal metaplasia, unspecified; J44.9 Chronic obstructive pulmonary disease, unspecified; I10 Essential (primary) hypertension; K31.A11 Gastric intestinal metaplasia without dysplasia, involving the antrum; K58.1 Irritable bowel syndrome with constipation; K57.30 Diverticulosis of large intestine without perforation or abscess without bleeding; G89.4 Chronic pain syndrome; F41.9 Anxiety disorder, unspecified; F32.A Depression, unspecified; E66.01 Morbid (severe) obesity due to excess calories; M06.9 Rheumatoid arthritis, unspecified; G40.909 Epilepsy, unspecified, not intractable, without status epilepticus; Z90.49 Acquired absence of other specified parts of digestive tract; Z90.89 Acquired absence of other organs; Z98.1 Arthrodesis status; Z88.0 Allergy status to penicillin; Z79.4 Long term (current) use of insulin; Z79.899 Other long term (current) drug therapy
CPT/HCPCS: 43239; J7030 ×2; J2704; A4620; A4215 ×2; A4223; A4222; A4221; A4663; A4606; J3490

== ENCOUNTER 2025-09-19 22:11 | Emergency (ER) | payer OTHER, MEDICAID ==
[~2025-09-19] VITALS: Ht 167.6 cm; Wt 106.6 kg
[~2025-09-19 22:11] MED LIST changes: -AMLO-257 PO; -CARAL PO; +CETI10TA57 PO; -DICY20TA3 PO; +FLUT15.845 NS; -FURO40TA5 PO; +GABA-1405 PO; -INSU100C14 SQ; -IPRA3AMP24 IH; -METF-444 PO; -MOM30 PO; +ONDA-105 SL; +OXYM30SP27 NS; +TRAM100C2 PO
[2025-09-19 22:12] VITALS: TEMP 98
--- NOTE | 2025-09-19 22:21 | EKG ---
[facility] Test Date: 2025-09-19 Test Time: 22:16:15 Pat Name: SHANEKA WHITE Department: ED Room: Gender: F Roofing Supervisor: [id number] : [id number] Requested By: MICHAEL DERAS Order Number: [id number] Reading MD: Danish Mora Measurements Intervals [place] Rate: 76 P: 62 [place]: 133 QRS: 16 QRSD: 64 T: 24 QT: 359 QTc: 404 Interpretive Statements Sinus rhythm Low voltage, precordial leads Nonspecific STT abnormality Compared to ECG 02/18/2025 00:17:27 No significant changes Electronically Signed On 09-20-2025 08:30:12 PATIENT SERVICES REP by Danish Mora Please click the below link to view image of tracing.
--- NOTE | 2025-09-19 22:33 | ERN ---
ED Note History of Present Illness Stated Complaint: CHEST PAIN, THROAT PAIN Chief Complaint: Chest Pain Time Seen by MD: 22:12 Dictation: Patient is a 65-year-old female with a past medical history of COPD on 2 L O2 supplementation at night at home, esophageal dilation, diabetes, hypertension. Patient presents to the ER complaining of chest discomfort, stated that she was seen at PCP today due to blood pressure issues, she states that she is on chronic steroids daily, was told that she has a white blood cell count elevated by PCP, pending workup as outpatient to rule out blood disturbance. Allergies: Coded Allergies: codeine (Unverified Allergy, Intermediate, HIVES, 09/27/16) Penicillins (Verified Allergy, Unknown, 05/20/15) budesonide (Unverified Allergy, Unknown, SWOLLEN TONGUE, 05/20/15) cefprozil (Unverified Allergy, Unknown, SWOLLEN TONGUE, 05/20/15) cephalexin (Unverified Allergy, Unknown, SWOLLEN TONGUE, 05/20/15) ciprofloxacin (Unverified Allergy, Unknown, 09/19/25) formoterol (Unverified Allergy, Unknown, SWOLLEN TONGUE, 05/20/15) tiotropium (Unverified Allergy, Unknown, SWOLLEN TONGUE, 05/20/15) Home Meds Active Scripts Hydroxyzine HCl (Hydroxyzine HCl) 10 Mg Tablet, 1 TAB PO BID for anxiety for 10 Days, #30 TAB 0 Refills Prov:MICHAEL MEAD MD 09/19/25 Reported Medications Gabapentin (Gabapentin) 600 Mg Tablet, 600 MG PO BID, TAB 01/09/25 Ondansetron HCl (Ondansetron HCl) 8 Mg Tablet, 8 MG SL BID, TAB 01/09/25 Tramadol HCl (Conzip) 100 Mg Cpmp.25.75, 50 MG PO BID 01/09/25 Oxymetazoline HCl (Afrin) 0.05 % [place], 30 ML NS AD, SPRAY 01/09/25 Fluticasone Propionate (Fluticasone Propionate) 50 Mcg/Actuation [place].susp, 15.8 ML NS BID 01/09/25 Cetirizine HCl (Cetirizine HCl) 10 Mg Tablet, 10 MG PO AM, TAB 01/09/25 Ondansetron (Ondansetron Odt) 8 Mg Tab.rapdis, 8 MG PO TID, TAB 08/14/23 Prednisone (Prednisone) 10 Mg Tablet, 10 MG PO AM, TAB 08/14/23 Montelukast Sodium (Montelukast Sodium) 10 Mg Tablet, 10 MG PO HS, TAB 08/14/23 Lorazepam (Ativan) 1 Mg Tablet, 1 MG PO BID, TAB 01/27/20 Olmesartan Medoxomil (Olmesartan Medoxomil) 40 Mg Tablet, 40 MG PO DAILYBKFST, TAB 01/27/20 Albuterol Sulfate (Proair Respiclick) 90 Mcg Aer.pow.ba, 90 MCG IH BID 09/27/16 Omeprazole (Omeprazole) 40 Mg Capsule.dr, 40 MG PO AM, CAP 05/20/15 Past Medical History Past Medical History: Arthritis, Diabetes-Type II, Hypertension Additional Past Medical Hx: " BAD LUNGS", COVID, HOME O2 AT HS, POOR HISTORIAN Surgical History: Other Surgical History Other: HERNIATED DISCS, NECK AND BACK, POOR HISTORIAN Family History: Negative Social History: Drugs, Negative, Other History: Not Applicable Review of System Dictation NEGATIVE EXCEPT PER HPI Constitutional: Negative for fever,chills, and weight loss Eyes: Negative for injury, pain,redness, and discharge ENT: Negative for injury,pain or swelling Cardiovascular: Chest pain. Respiratory: Negative for shortness of breath, cough, and wheezing, Abdomen/GI: Negative for abdominal pain, nausea, vomiting, diarrhea, and constipation Back: Negative for injury and pain : Negative for injury, bleeding and discharge MS/Extremity: Negative for injury and deformity Skin: Negative for rash, and discoloration Neuro: Negative for headache, weakness, numbness, tingling, and seizure Psych: Negative for suicide ideation, homicidal ideation, and hallucinations Initial Vital Sign VS Vital Signs Date Time Temp Pulse Resp B/P (MAP) Pulse Ox O2 Delivery O2 Flow Rate FiO2 09/19/25 22:12 98.1 92 20 168/79 97 Room Air 09/19/25 23:33 0 21 Physical Exam Dictation General: awake, alert, NAD, looks anxious Head/Face: Normocephalic, atraumatic Eyes: PERRL, EOMI, vision at baseline ENT: oral cavity clear, TMs clear, no signs of infection Neck: Trachea midline, supple, no nuchal rigidity Cardiovascular: RRR, normal S1/S2, No MRGs, no JVD Respiratory: CTAB, no respiratory distress, No rales or wheezes Abdomen: Soft , no tender Skin: Warm, dry, normal turgor, no rash MS/Extremity: Pulses equal, no cyanosis, neurovascular intact, FROM Neuro: COAx4, GCS 15, strength 5/5, CN 2-12 intact, normal cerebellar exam, normal gait, Psych: Normal behavior, mood, and affect normal Results (Laboratory/Radiology) Laboratory/Radiology Laboratory Tests Test 09/19/25 22:34 White Blood Count 8.4 K/uL (4.8-10.8) Red Blood Count 4.51 MIL/uL (4.00-5.50) Hemoglobin 12.9 g/dL (12.0-16.0) Hematocrit 40.8 % (36-48) Mean Corpuscular Volume 90.5 fL (79-99) Mean Corpuscular Hemoglobin 28.6 pg (27.0-33.0) Mean Corpuscular Hemoglobin Concent 31.6 g/dL (32.0-36.0) L Red Cell Distribution Width 14.0 % (11.0-15.5) Platelet Count 256 K/uL (130-400) Mean Platelet Volume 10.1 fL (7.5-10.5) Immature Granulocyte % (Auto) 0.2 % (0-1) Neutrophils (%) (Auto) 69.5 % (40.0-77.0) Lymphocytes (%) (Auto) 18.7 % (21.0-51.0) L Monocytes (%) (Auto) 8.6 % (3.0-13.0) Eosinophils (%) (Auto) 2.5 % (0.0-8.0) Basophils (%) (Auto) 0.5 % (0.0-5.0) Neutrophils # (Auto) 5.8 K/uL (1.8-7.7) Lymphocytes # (Auto) 1.6 K/uL (1.0-4.8) Monocytes # (Auto) 0.7 K/uL (0.1-1.0) Eosinophils # (Auto) 0.21 K/uL (0.00-0.70) Basophils # (Auto) 0.04 K/uL (0.00-0.20) Absolute Immature Granulocyte (auto 0.02 K/uL (0-1) Nucleated Red Blood Cells 0.0 % (0.0-0.19) Sodium Level 141 mmol/L (136-145) Potassium Level 4.4 mmol/L (3.5-5.1) Chloride Level 107 mmol/L (101-111) Carbon Dioxide Level 26 mmol/L (21-32) Blood Urea Nitrogen 10 mg/dL (7-18) Creatinine 1.0 mg/dL (0.5-1.0) Glomerular Filtration Rate Calc 62 mL/min (>90) Random Glucose 124 mg/dL (70-105) H Total Calcium 8.0 mg/dL (8.5-10.1) L Troponin I High Sensitivity 7 ng/L (4-50) EKG Comment: Sinus rhythm, heart rate 76, [place] 133, QT 359. Negative for STEMI ED Course ED Course Orders Procedure Category Date Status Time Cbc With Differential LAB 09/19/25 Complete 22:13 Chest 1vw RAD 09/19/25 Resulted 22:13 12 Lead Ekg Tracing- EKG 09/19/25 Complete Technical 22:13 Troponin I High LAB 09/19/25 Complete Sensitivity 22:13 Basic Metabolic Panel LAB 09/19/25 Complete 22:13 Vital Signs Date Time Temp Pulse Resp B/P (MAP) Pulse Ox O2 Delivery O2 Flow Rate FiO2 09/19/25 23:33 78 18 129/65 99 Room Air* 0 21 09/19/25 22:12 98.1 92 20 168/79 97 Room Air HEART Score Response (Comments) Value History: Low suspicion (0) 0 EKG: Normal 0 Age: > 65yrs (+2) 2 Risk Factors: 1-2 risk factors (+1) 1 Initial Troponin: Normal limit (0) 0 HEART Score Risk: Mod Risk for MACE (4-6) Total 3 Medical Decision Making MDM Patient is a 65-year-old female with a past medical history of COPD on 2 L O2 supplementation at night at home, esophageal dilation, diabetes, hypertension. Patient presents to the ER complaining of chest discomfort, stated that she was seen at PCP today due to blood pressure issues, she states that she is on chronic steroids daily, was told that she has a white blood cell count elevated by PCP, pending workup as outpatient to rule out blood disturbance. Chest pain COPD exacerbation Anxiety chest pain workup, chest x-ray Laboratory was unremarkable, troponin level 7 EKG sinus rhythm Was re-evaluate the bedside, no chest pain, vital signs within normal limits. Plan to discharge the patient home DX & DISP Disposition: Discharge Departure Impression: Primary Impression: Chest pain Additional Impressions: Esophageal spasm, Anxiety Condition: Stable Scripts Hydroxyzine HCl (Hydroxyzine HCl) 10 Mg Tablet 1 TAB PO BID for anxiety for 10 Days, #30 TAB 0 Refills Prov: MICHAEL MEAD MD 09/19/25 Referrals: OVIDIO MERRILL MD (PCP) MICHAEL MEAD MD Sep 19, 2025 22:33
[2025-09-19 22:56] LABS: IMMATURE GRANULOCYTE ABSOLUTE 0.02 K/uL (0-1); NUCLEATED RED BLOOD CELLS 0.0 % (0.0-0.19); PLATELET COUNT (AUTO) 256 K/uL (130-400); RED BLOOD CELL COUNT(AUTO) 4.51 MIL/uL (4.00-5.50); RED CELL DISTRIBUTION WIDTH 14.0 % (11.0-15.5); WHITE BLOOD COUNT (AUTO) 8.4 K/uL (4.8-10.8)
--- NOTE | 2025-09-19 23:02 | HMCIMG ---
EXAM: CR Chest, 1 view CLINICAL HISTORY: Chest pain. COMPARISON: None provided. FINDINGS: The lungs show no infiltrates or other acute findings. No pleural effusion or pneumothorax. The cardiomediastinal silhouette is within normal limits. Mild atherosclerotic aorta. No acute osseous abnormality. Metal implant in the cervical spine. IMPRESSION: No acute cardiopulmonary process is evident. /[place]
[2025-09-19 23:14] LABS: CREATININE 1.0 mg/dL (0.5-1.0); GLOMERULAR FILTR. RATE CALC 62.0 mL/min (>90); GLUCOSE,RANDOM 124.0 mg/dL (70-105); SODIUM SERUM 141.0 mmol/L (136-145); UREA NITROGEN, BLOOD 10.0 mg/dL (7-18)
[2025-09-19] MEDS ORDERED: HYDR-3830 PO (23:21)
[2025-09-19 23:33] VITALS: BP 129/65; PULSE 78; RESP 18; O2SAT 99
== END 2025-09-20 00:01 | disposition home or self-care (01) ==
LOC: EDH 22:11
DX: R07.89 Other chest pain (principal); K22.4 Dyskinesia of esophagus; F41.9 Anxiety disorder, unspecified; E11.9 Type 2 diabetes mellitus without complications; I10 Essential (primary) hypertension; M19.90 Unspecified osteoarthritis, unspecified site; J44.9 Chronic obstructive pulmonary disease, unspecified; Z88.0 Allergy status to penicillin; Z88.1 Allergy status to other antibiotic agents; Z88.5 Allergy status to narcotic agent; Z88.8 Allergy status to other drugs, medicaments and biological substances; Z79.899 Other long term (current) drug therapy; Z86.16 Personal history of COVID-19
CPT/HCPCS: 36415; 71045; 80048; 84484; 85025; 93005; 99285